=== PATIENT | female | born 1950 | race African-American/Black ===

== ENCOUNTER 2016-12-03 19:19 | Inpatient (IN) | payer OTHER ==
[2016-12-03 19:23] VITALS: BMI 24.9
--- NOTE | 2016-12-03 21:15 | PDOC ---
History of Present Illness - General History Source: Patient Exam Limitations: No Limitations - History of Present Illness Initial Comments: 12/03/16 22:09 The patient is a 66 year old female with a significant past medical history of HTN, multi myeloma (diagnoses in 2010), and osteoporosis who presents to the ED , sent by PMD (Dr. Zhang), for abnormal changes in ECG. The patient reports she had a sudden onset of loss of consciousness 3 weeks ago. She reports visiting her PMD on 11/[address] Zhang is concerned the loss of consciousness is related to her heart. Dr. Zhang compared the patient latest ECG (1 month ago) to an ECG of a year ago and noted some abnormal changes and called the patient at home to come into the ED. Denies chest pain or palpitations. Denies shortness of breath or cough. Denies fevers or chills. Denies any other symptoms. Surgical hx: Hysterectomy (several years ago), Shoulder rotator cuff, Femur surgery (jones in place) <Prakash Gunderson - Last Filed: 12/03/16 22:09> <Olga Barraza - Last Filed: 12/04/16 06:37> - General Chief Complaint: Revisit, Lab Variance Stated Complaint: LAB VARIANCE (PCP SENT) Time Seen by Provider: 12/03/16 21:15 Past History <Prakash Gunderson - Last Filed: 12/03/16 22:09> - Past Medical History Anemia: Yes Asthma: No Cancer: Yes (MUTIPLE MYELOMA 2011,RECEIVING CHEMO) Cardiac Disorders: Yes (BENIGN MURMUR) CVA: No COPD: No CHF: No Dementia: No Diabetes: No GI Disorders: No Disorders: No HTN: Yes Hypercholesterolemia: Yes Liver Disease: No Suicide Attempt (Hx): No Seizures: No Thyroid Disease: No - Surgical History Abdominal Surgery: No Appendectomy: No Cardiac Surgery: No Cholecystectomy: No Lung Surgery: No Neurologic Surgery: No Orthopedic Surgery: Yes (Jones placement on left femur) - Psycho/Social/Smoking Cessation Hx Suicidal Ideation: No Smoking History: Never smoked Have you smoked in the past 12 months: No Hx Alcohol Use: Yes (SOCIAL) Drug/Substance Use Hx: No Substance Use Type: None Hx Substance Use Treatment: No <Olga Barraza - Last Filed: 12/04/16 06:37> - Past Medical History Allergies/Adverse Reactions: Allergies Allergy/AdvReac Type Severity Reaction Status Date / Time No Known Drug Allergies Allergy Verified 12/03/16 19:23 Home Medications: Ambulatory Orders Amlodipine Besylate [Norvasc -] 5 mg PO DAILY 12/19/13 Atovaquone [Mepron Oral Solution -] 750 mg PO BID 8 Days 01/31/15 Azithromycin [Zithromax 250mg Tablets -] 500 mg PO DAILY 8 Days 01/31/15 Review of Systems - Review of Systems Able to Perform ROS?: Yes Comments:: 12/03/16 22:09 CONSTITUTIONAL: Absent: fever, chills, diaphoresis, generalized weakness, malaise, loss of appetite HEENT: Absent: rhinorrhea, nasal congestion, throat pain, throat swelling, difficulty swallowing, mouth swelling, ear pain, eye pain, visual Changes CARDIOVASCULAR: + abnormal ECG Absent: chest pain, syncope, palpitations, irregular heart rate, lightheadedness , peripheral edema RESPIRATORY: Absent: cough, shortness of breath, dyspnea with exertion, orthopnea, wheezing, stridor, hemoptysis GASTROINTESTINAL: Absent: abdominal pain, abdominal distension, nausea, vomiting, diarrhea, constipation, melena, hematochezia GENITOURINARY: Absent: dysuria, frequency, urgency, hesitancy, hematuria, flank pain, genital pain MUSCULOSKELETAL: Absent: myalgia, arthralgia, joint swelling SKIN: Absent: rash, itching, pallor HEMATOLOGIC/IMMUNOLOGIC: Absent: easy bleeding, easy bruising, lymphadenopathy, frequent infections ENDOCRINE: Absent: unexplained weight gain, unexplained weight loss, heat intolerance, cold intolerance NEUROLOGIC: + loss of consciousness Absent: headache, focal weakness or paresthesias, dizziness, unsteady gait, seizure, mental status changes, bladder or bowel incontinence PSYCHIATRIC: Absent: anxiety, depression, suicidal or homicidal ideation, hallucinations. All Other Systems: Reviewed and Negative <Prakash Gunderson - Last Filed: 12/03/16 22:09> *Physical Exam - Vital Signs Last Vital Signs Temp Pulse Resp BP Pulse Ox 97.9 F 85 18 126/62 99 12/03/16 19:21 12/03/16 19:21 12/03/16 19:21 12/03/16 19:21 12/03/16 19:21 - Physical Exam Comments: 07/07/17 22:09 GENERAL: Well developed, well nourished. Awake and alert. No acute distress. HEENT: Normocephalic, atraumatic. PERRLA, EOMI. No conjunctival pallor. Sclera are non- icteric. Moist mucous membranes. Oropharynx is clear. NECK: Supple. Full ROM. No JVD. Carotid pulses 2+ and symmetric, without bruits. No thyromegaly. NCo lymphadenopathy. CARDIOVASCULAR: + split S-1 murmur No rubs, or gallops. Distal pulses are 2+ and symmetric. PULMONARY: No evidence of respiratory distress. Lungs clear to auscultation bilaterally. No wheezing, rales or rhonchi. ABDOMINAL: Soft. Non-tender. Non-distended. No rebound or guarding. No organomegaly. Normoactive bowel sounds. MUSCULOSKELETAL Normal range of motion at all joints. No bony deformities or tenderness. No CVA tenderness. EXTREMITIES: No cyanosis. No clubbing. No edema. No calf tenderness. SKIN: Warm and dry. Normal capillary refill. No rashes. No jaundice. NEUROLOGICAL: Alert, awake, appropriate. Cranial nerves 2-12 intact. No deficits to light touch and temperature in face, upper extremities and lower extremities. No motor deficits in the in face, upper extremities and lower extremities. Normoreflexic in the upper and lower extremities. Normal speech. Toes are down- going bilaterally. Gait is normal without ataxia. PSYCHIATRIC: Cooperative. Good eye contact. Appropriate mood and affect. <Prakash Gunderson - Last Filed: 12/03/16 22:09> - Vital Signs Last Vital Signs Temp Pulse Resp BP Pulse Ox 97.9 F 85 18 126/62 99 12/03/16 19:21 12/03/16 19:21 12/03/16 19:21 12/03/16 19:21 12/03/16 19:21 <Olga Barraza - Last Filed: 12/04/16 06:37> ED Treatment Course - LABORATORY CBC & Chemistry Diagram: 12/03/16 23:45 12/03/16 23:45 <Olga Barraza - Last Filed: 12/04/16 06:37> Medical Decision Making - Medical Decision Making 12/04/16 06:03 Pt comes with syncope 1-2 weeks ago. She was feeling fine in a grocery store, when without warning she passed out and hit the ground. She never went to the hospital and tole this story to her oncologist for her multiple myeloma. Oncologist Vicente let her PMD know about this. Pt was scheduled to see a property developer, but the property developer couldn't see her until later in the month. Given patient's history of systolic murmur, and other medical problems, PMD asked her to come to the ER for an inpatient workup of syncope and an echocardiogram. Pt has a normal head CT and she has normal cardiac enzymes and a NSR EKG. SHe has a split S1 heart sound, indicative of bicuspid arotic valve vs perhaps Mitral valve prolapse. We requested Dr. Seymour of cardiology to consult on the patient. Pt admitted to her PMDs service. Dr. Richey is covering and aware of the patient. <Olga Barraza - Last Filed: 12/04/16 06:37> *DC/Admit/Observation/Transfer - Attestations Scribe Attestion: 12/03/16 22:10 Documentation prepared by Prakash Gunderson, acting as medical dir for Olga Barraza MD <Prakash Gunderson - Last Filed: 12/03/16 22:09> - Discharge Dispostion Admit: Yes <Olga Barraza - Last Filed: 12/04/16 06:37> Diagnosis at time of Disposition: Systolic murmur Syncope Qualifiers: Encounter type: initial encounter - Referrals
[2016-12-03 23:51] LABS: BASOPHIL 0.8 % (0-2.0); MCH 32.4 pg (25.7-33.7); MCHC 32.8 g/dl (32.0-36.0); MEAN CELL VOLUME 98.7 fl (80-96); MEAN PLT VOLUME 8.8 fl (7.5-11.1); NEUTROPHILS 70.6 % (42.8-82.8); PLATELET COUNT 229 K/MM3 (134-434); WHITE BLOOD COUNT 6.6 K/mm3 (4.0-10.0)
[2016-12-04 00:10] LABS: INR 1.04 (0.82-1.09); PROTHROMBIN TIME (PATIENT) 11.4 SEC (9.98-11.88)
[2016-12-04 00:20] LABS: ALBUMIN 3.7 g/dl (3.4-5.0); ALK PHOS 86 U/L (45-117); ANION GAP 9 (8-16); BILIRUBIN,TOTAL 0.6 mg/dL (0.2-1.0); CALCIUM 9.6 mg/dL (8.5-10.1); CO2 29 mmol/L (21-32); CREATININE 0.9 mg/dL (0.55-1.02); GLUCOSE,RANDOM 90 mg/dL (74-106); SGOT/AST 20 U/L (15-37); SGPT/ALT 32 U/L (12-78); TOT PROT 6.8 g/dl (6.4-8.2)
--- NOTE | 2016-12-04 01:17 | HP ---
Admitting History and Physical - Admission Chief Complaint: Syncope History of Present Illness: 66 y/o female with PMH as below, had an episode of syncope 1 week ago, but did not seek medical attention. Presented to her oncologist, where she was found to have changes in EKG and was advised admission for further evaluation. Currently the pt does not have any related symptoms. She has some generalized weakness and symptoms related to osteoarthritis. History Source: Patient, Medical Record, Caregiver Limitations to Obtaining History: No Limitations - Past Medical History Cardiovascular: Yes: HTN Heme/Onc: Yes: Other (multiple myeloma since 2009) Musculoskeletal: Yes: Osteoarthritis - Past Surgical History Past Surgical History: Yes: Hysterectomy (AP-BSO for benign ovarian cyst), Joint Replacement (L femur indra 2009 for pathological fracture) - Smoking History Smoking history: Never smoked Have you smoked in the past 12 months: No - Alcohol/Substance Use Hx Alcohol Use: Yes (SOCIAL) - Social History ADL: Independent History of Recent Travel: No Home Medications - Allergies Allergies/Adverse Reactions: Allergies Allergy/AdvReac Type Severity Reaction Status Date / Time No Known Drug Allergies Allergy Verified 12/03/16 19:23 - Home Medications Home Medications: Ambulatory Orders Amlodipine Besylate [Norvasc -] 5 mg PO DAILY 12/19/13 Atovaquone [Mepron Oral Solution -] 750 mg PO BID 8 Days 01/31/15 Azithromycin [Zithromax 250mg Tablets -] 500 mg PO DAILY 8 Days 01/31/15 Family Disease History - Family Disease History Family History: Unremarkable Family Disease History: Other: Father ( in war), Mother (glaucoma HTN OA, alive at 97) Review of Systems - Review of Systems Constitutional: reports: Weakness HENT: reports: No Symptoms Cardiovascular: reports: Other (Syncope) Gastrointestinal: reports: No Symptoms Musculoskeletal: reports: Joint Pain Neurological: reports: Syncope Hematology/Lymphatic: reports: No Symptoms Physical Examination Vital Signs: Vital Signs Temperature 97.9 F 12/03/16 19:21 Pulse Rate 85 12/03/16 19:21 Respiratory Rate 18 12/03/16 19:21 Blood Pressure 126/62 12/03/16 19:21 O2 Sat by Pulse Oximetry (%) 99 12/03/16 19:21 Constitutional: Yes: No Distress Eyes: Yes: PERRL HENT: Yes: Atraumatic, Normocephalic Neck: Yes: Supple Cardiovascular: Yes: Regular Rate and Rhythm, Murmur, S1, S2 Respiratory: Yes: CTA Bilaterally Gastrointestinal: Yes: Normal Bowel Sounds, Soft Neurological: Yes: Alert, Oriented. No: Loss of Sensation ...Motor Strength: WNL Imaging - Results Cat Scan: Report Reviewed Problem List - Problems (1) Syncope Assessment/Plan: Telemetry monitoring, troponins, Echocardiogram and cardiology consultation. CT head unremarkable Code(s): R55 - SYNCOPE AND COLLAPSE Qualifiers: Encounter type: initial encounter (2) Systolic murmur Assessment/Plan: Echo as above Code(s): R01.1 - CARDIAC MURMUR, UNSPECIFIED (3) Myeloma Assessment/Plan: Stable, oncology follow up Code(s): C90.00 - MULTIPLE MYELOMA NOT HAVING ACHIEVED REMISSION Qualifiers: Multiple myeloma remission status: unspecified Qualified Code(s): C90.00 - Multiple myeloma not having achieved remission (4) HTN (hypertension) Assessment/Plan: Amlodipine Code(s): I10 - ESSENTIAL (PRIMARY) HYPERTENSION Qualifiers: Hypertension type: essential hypertension Qualified Code(s): I10 - Essential (primary) hypertension
[2016-12-04 02:16] LABS: TROPONIN I < 0.02 ng/ml (0.00-0.05)
[2016-12-04 07:52] LABS: MCH 33.2 pg (25.7-33.7); MCHC 33.7 g/dl (32.0-36.0); MEAN CELL VOLUME 98.4 fl (80-96); MEAN PLT VOLUME 9.5 fl (7.5-11.1); PLATELET COUNT 206 K/MM3 (134-434); RDW 15.9 % (11.6-15.6); WHITE BLOOD COUNT 9.7 K/mm3 (4.0-10.0)
[2016-12-04 08:19] LABS: ALBUMIN 3.5 g/dl (3.4-5.0); ANION GAP 9 (8-16); CALCIUM 9.3 mg/dL (8.5-10.1); CO2 24 mmol/L (21-32); GLUCOSE,RANDOM 105 mg/dL (74-106)
[2016-12-04 08:25] LABS: ALK PHOS 81 U/L (45-117); BILIRUBIN,TOTAL 0.7 mg/dL (0.2-1.0); CREATININE 0.8 mg/dL (0.55-1.02); SGOT/AST 20 U/L (15-37); SGPT/ALT 28 U/L (12-78); TOT PROT 6.3 g/dl (6.4-8.2); TROPONIN I < 0.02 ng/ml (0.00-0.05)
[2016-12-04] MEDS ORDERED: PT OWN MED DRAWER 7, Y5N ONE (08:46)
[2016-12-04] MEDS: ASPIRIN COATED 81 MG TABLET.EC PO SCH (09:06)
[2016-12-04] MEDS: ENOXAPARIN NA (PORCINE) 40 MG/0.4 ML DISP.SYRIN SQ SCH (09:06)
[2016-12-04] MEDS: amLODIPine BESYLATE 5 MG TABLET (FP) PO SCH (09:06)
--- NOTE | 2016-12-04 14:32 | CON.CARD ---
Cardiology Consult (text) - Consultation Consultation Note: CC: prior syncope/ekg abnormalities 66 yo with h/o HTN, murmur, multiple myeloma, osteoporosis and episode of syncope 3 weeks ago who presents new EKG abnormalities. The patient reports she had a sudden onset of loss of consciousness 3 weeks ago while standing in line at grocery store. No prodrome. + LOC. Immediately regained consciousness and was asx. denies prior h/o syncope, palps or presyncope. Denies chest pain or palpitations. Denies shortness of breath, orthopnea, pnd, le edema, bleeding, claudication or transient neurologic sx's. Denies n/v/d, congestion, h/a, rashes, cough. Denies f/c/s. PMHx/Surgical hx: per hpi, Hysterectomy (several years ago), Shoulder rotator cuff, Femur surgery (indra in place) Social hx: Never smoked, social etoh fam hx: mother with chf in her 90's. ros: per hpi Ambulatory Orders Amlodipine Besylate [Norvasc -] 5 mg PO DAILY 12/19/13 Atovaquone [Mepron Oral Solution -] 750 mg PO BID 8 Days 01/31/15 Azithromycin [Zithromax 250mg Tablets -] 500 mg PO DAILY 8 Days 01/31/15 Current Medications Amlodipine Besylate (Norvasc -) 5 mg PO DAILY [facility] Last Admin: 12/04/16 09:06 Dose: 5 mg Aspirin (Ecotrin -) 81 mg PO DAILY [facility] Last Admin: 12/04/16 09:06 Dose: 81 mg Enoxaparin Sodium (Lovenox -) 40 mg SQ DAILY [facility] Last Admin: 12/04/16 09:06 Dose: 40 mg Vital Signs - 24 hr 12/03/16 12/04/16 12/04/16 19:21 05:38 06:00 Temperature 97.9 F 98.1 F 97.6 F Pulse Rate 85 72 70 Respiratory 18 18 18 Rate Blood Pressure 126/62 156/86 146/76 O2 Sat by Pulse 99 98 Oximetry (%) 12/04/16 12/04/16 12/04/16 07:54 08:00 13:57 Temperature 98.1 F 98 F Pulse Rate 69 68 Respiratory 20 18 20 Rate Blood Pressure 141/80 138/64 O2 Sat by Pulse 98 Oximetry (%) Intake & Output 12/02/16 12/03/16 12/04/16 12/05/16 07:59 07:59 07:59 07:59 Intake Total 210 Balance 210 Weight 145 lb nad, calm jvd flat, neck supple ctab, nl effort rrr nl s1 s2, 2/6 murmur at rusb + bs soft nt nd ext without e/c/c no carotid bruits no jaundice, diaphoresis aaox3 + dp/pt CBC, BMP 12/04/16 06:00 12/04/16 06:00 Laboratory Tests 12/03/16 12/03/16 12/04/16 23:45 23:45 06:00 INR 1.04 Total Bilirubin 0.7 AST 20 ALT 28 Alkaline Phosphatase 81 Creatine Kinase 199 H D Creatine Kinase Index 1.0 CK-MB (CK-2) 2.070 Troponin I < 0.02 < 0.02 Albumin 3.5 EKG nsr/sinus arrhythmia. possible lvh Repeat EKG: nsr with pvc triggering brief self-limited SVT and then return to sinus rhythm on rhythm strip. tele: 5b nsvt CXR/head CT: no acute pathology Echo 2015: nl lv/rv mod fang. 1+ mr/tr. rsp 40-50. 66 yo with h/o HTN, murmur, multiple myeloma, osteoporosis and episode of syncope 3 weeks ago who presents new EKG abnormalities. syncope/ brief SVT, nsvt noted on monitoring - no prodrome - patient strongly wants to go home. Will con't telemetry monitoring for another 24 hours and if no significant arrhythmias will plan to discharge home with holter monitor. Can follow up with me in office on tuesday and will schedule stress testing and echo.. EKG abnormalities - EKG ab noted at oncology office, but I do not have access to that EKG. Current EKG similar to priors. no ischemic changes. CE's neg x 2. htn - controlled on norvasc, con't murmur - no significant valvular disease noted on exam. will further evaluate with echo as mentioned above.
[2016-12-05 06:39] LABS: MCH 33.3 pg (25.7-33.7); MCHC 33.8 g/dl (32.0-36.0); MEAN CELL VOLUME 98.4 fl (80-96); MEAN PLT VOLUME 8.5 fl (7.5-11.1); PLATELET COUNT 195 K/MM3 (134-434); RDW 16.2 % (11.6-15.6); WHITE BLOOD COUNT 7.1 K/mm3 (4.0-10.0)
[2016-12-05 07:24] LABS: ALBUMIN 3.1 g/dl (3.4-5.0); ANION GAP 9 (8-16); CALCIUM 8.7 mg/dL (8.5-10.1); CO2 27 mmol/L (21-32); GLUCOSE,RANDOM 96 mg/dL (74-106); MAGNESIUM 2.2 mg/dL (1.8-2.4)
[2016-12-05 07:30] LABS: ALK PHOS 75 U/L (45-117); BILIRUBIN,TOTAL 0.5 mg/dL (0.2-1.0); CREATININE 0.8 mg/dL (0.55-1.02); SGOT/AST 17 U/L (15-37); SGPT/ALT 25 U/L (12-78); TOT PROT 5.8 g/dl (6.4-8.2); TROPONIN I < 0.02 ng/ml (0.00-0.05)
[2016-12-05 07:54] VITALS: BP 138/83; PULSE 61; TEMP 98
[2016-12-05] MEDS: ASPIRIN COATED 81 MG TABLET.EC PO SCH (09:10)
[2016-12-05] MEDS: amLODIPine BESYLATE 5 MG TABLET (FP) PO SCH (09:10)
[2016-12-05] MEDS: ENOXAPARIN NA (PORCINE) 40 MG/0.4 ML DISP.SYRIN SQ SCH (09:11)
--- NOTE | 2016-12-05 23:17 | DS ---
Physical Examination Vital Signs: Vital Signs Temperature 98 F 12/05/16 07:53 Pulse Rate 61 12/05/16 07:53 Respiratory Rate 18 12/05/16 08:00 Blood Pressure 138/83 12/05/16 07:53 O2 Sat by Pulse Oximetry (%) 97 12/05/16 08:00 Constitutional: Yes: No Distress Eyes: Yes: WNL, Conjunctiva Clear, EOM Intact HENT: Yes: WNL, Atraumatic, Normocephalic Neck: Yes: Supple Cardiovascular: Yes: Regular Rate and Rhythm, S1, S2 Respiratory: Yes: CTA Bilaterally Gastrointestinal: Yes: Normal Bowel Sounds, Soft Musculoskeletal: Yes: WNL Extremities: Yes: WNL Edema: No Integumentary: Yes: WNL Neurological: Yes: Alert, Oriented ...Motor Strength: WNL Psychiatric: Yes: WNL Labs: CBC, BMP 12/05/16 05:40 12/05/16 05:40 Discharge Summary Reason For Visit: SYNCOPE, SYSTOLIC MURMUR/SYNCOPE/MULTIPLE MYELOMA Procedures: Principal: HOLTER MONITOR Hospital Course: 66 y/o female admitted after a syncope, had a brief period of new a fib, Cardiolgy rec Holter monitor which was applied, Echo as outpatient Condition: Good - Instructions Diet, Activity, Other Instructions: You have been placed with a holter monitor today 12/05/16. Please return monitor to [facility], cardiology department level-S1 in 24hrs Follow up with Dr. Alona Garces (cardiology) on Tuesday12/06/16 at 1230pm for stress and echocardiogram Please return to ER if any symptoms reoccur Diet:: 2 gm Na Referrals: Mili Membreno MD [Staff Physician] - Kendy Camp MD [Primary Care Provider] - Disposition: HOME - Home Medications Comprehensive Discharge Medication List: Ambulatory Orders Amlodipine Besylate [Norvasc -] 5 mg PO DAILY 12/19/13 Atovaquone [Mepron Oral Solution -] 750 mg PO BID 8 Days 01/31/15 Azithromycin [Zithromax 250mg Tablets -] 500 mg PO DAILY 8 Days 01/31/15
--- NOTE | 2016-12-06 13:53 | EKG ---
Test Reason : Blood Pressure : / mmHG Vent. Rate : 113 BPM Atrial Rate : 055 BPM P-R Int : 000 ms QRS Dur : 114 ms QT Int : 416 ms P-R-T Axes : 000 033 074 degrees QTc Int : 570 ms ATRIAL FIBRILLATION WITH RAPID VENTRICULAR RESPONSE WITH PREMATURE VENTRICULAR OR ABERRANTLY CONDUCTED COMPLEXES NONSPECIFIC T WAVE ABNORMALITY PROLONGED QT ABNORMAL ECG WHEN COMPARED WITH ECG OF 04-DEC-2016 01:26, ATRIAL FIBRILLATION HAS REPLACED SINUS RHYTHM Confirmed by AKHIL LYONS, ALAN ([id number]) on 12/06/2016 1:53:34 PM Referred By: Cleve MEAD Confirmed By:ALAN LANDAVERDE MD
--- NOTE | 2016-12-06 13:54 | EKG ---
Test Reason : Blood Pressure : / mmHG Vent. Rate : 091 BPM Atrial Rate : 091 BPM P-R Int : 134 ms QRS Dur : 082 ms QT Int : 350 ms P-R-T Axes : 067 031 058 degrees QTc Int : 430 ms NORMAL SINUS RHYTHM WITH SINUS ARRHYTHMIA MINIMAL VOLTAGE CRITERIA FOR LVH, MAY BE NORMAL VARIANT BORDERLINE ECG WHEN COMPARED WITH ECG OF 27-JAN-2015 14:36, T WAVE VARIATION Confirmed by AKHIL LYONS, ALAN ([id number]) on 12/06/2016 1:54:24 PM Referred By: Confirmed By:ALAN LANDAVERDE MD
--- NOTE | 2016-12-09 07:08 | HOL ---
Hook-up date: 2016-12-05 09:36:00 Duration: 23:59:00 Test Indications: SYNCOPE Medications: 20073 QRS complexes 18 Ventricular ectopics which represent <1 % of total QRS comp. 5214 Supraventricular ectopics which represent 5 % of total QRS comp. * Paced QRS complexs which represent % of total QRS comp. 2 % of Time Classified as Noise VENTRICULAR ECTOPY 16 Isolated 0 Bigeminal Cycles 1 Couplets 0 Runs 0 Beats in Runs * Beats LONGEST at * BPM at :: -- * Beats FASTEST at * BPM at :: -- SUPRAVENTRICULAR ECTOPY 4949 Isolated 120 Couplets 6 Runs 23 Beats in Runs 8 Beats LONGEST at 139 BPM at 07:10:51 2016-12-06 8 Beats FASTEST at 139 BPM at 07:10:51 2016-12-06 HEART RATES 46 MIN at 01:03:29 2016-12-06 66 AVG 116 MAX at 16:03:49 2016-12-05 LONGEST RR 1.376 secs at 18:08:33 2016-12-05 SCANNED BY RAIZA GAMA 12/07/2016 1. Basic rhythm was sinus with a mnimum heart rate of 46 BPM and maximum of 116 BPM. Average heart rate of 66 BPM 2. There were rare VPB's 3. There were frequent SPB's at times successive, 3 in a row and a 7 beat run of SVT (07:10) 4. ST segments revealed nonspecific changes that were rate related and unrelated. 5. No diary was submitted. Confirmed by SHEIKH SERENA, BRANDO ([id number]), editorial clerk HANK MAR ([id number]) on 12/09/2016 7:07:32 AM Referred By: Overread By: BRANDO BROOKS MD
== END 2016-12-05 12:18 | disposition home or self-care (01) | DRG 307 ==
LOC: JER 19:19 → JERBED 23:51 → J4W 12-04 03:22
PROVIDERS: ADMIT Internal Medicine; ATTEND Internal Medicine
DX: R01.1 Cardiac murmur, unspecified (principal); C90.00 Multiple myeloma not having achieved remission; I47.1 Supraventricular tachycardia; R55 Syncope and collapse; I10 Essential (primary) hypertension; I48.91 Unspecified atrial fibrillation
CPT/HCPCS: 36415; 70450-TC; 71020-TC; 80053; 82550; 82553; 83735; 84484; 85025; 85027; 85610; 85730; 93005; 93010; 93225; 93226; 99284-25

== ENCOUNTER 2017-05-11 15:38 | Emergency (ER) | payer OTHER ==
[2017-05-11 15:43] VITALS: TEMP 98; BMI 24.9
--- NOTE | 2017-05-11 16:02 | PDOC ---
History of Present Illness - General History Source: Patient Exam Limitations: No Limitations - History of Present Illness Initial Comments: 05/11/17 17:03 66 year old female, with significant past medical history of HTN and osteoporosis, who was sent over to the emergency room from outpatient CT with swelling to an infiltrated IV on the right arm. The patient explains that she was having an outpatient Chest CT with contrast to r/o pulmonary embolism at 3: 30 today. The IV line in the right cubital vein infiltrated with contrast and the right biceps and forearm became swollen. The arm was elevated ice was applied. She was sent into the ED for further evaluation. The patient denies any allergies to contrast. Denies difficulty breathing, difficulty swallowing. Denies numbness,tingling down the extremity, fingers, and hands. Denies chest pain, SOB. Denies fever, chills, nausea, vomiting. Allergies: NKDA PCP: Dr. Camp <Lottie Good - Last Filed: 05/11/17 17:03> <Odessa Zacarias - Last Filed: 05/11/17 17:41> - General Chief Complaint: Pain, Acute Stated Complaint: EVALUATION Time Seen by Provider: 05/11/17 16:01 Past History <Lottie Good - Last Filed: 05/11/17 17:03> - Past Medical History Anemia: Yes Asthma: No Cancer: Yes (MUTIPLE MYELOMA) Cardiac Disorders: Yes (BENIGN MURMUR) CVA: No COPD: No CHF: No DVT: No Dementia: No Diabetes: No GI Disorders: No Disorders: No HTN: Yes Hypercholesterolemia: Yes Liver Disease: No Seizures: No Thyroid Disease: No - Surgical History Abdominal Surgery: No Appendectomy: No Cardiac Surgery: No Cholecystectomy: No Lung Surgery: No Neurologic Surgery: No Orthopedic Surgery: Yes (Jones placement on left femur) - Suicide/Smoking/Psychosocial Hx Smoking History: Never smoked Have you smoked in the past 12 months: No Hx Alcohol Use: No Drug/Substance Use Hx: No Substance Use Type: None Hx Substance Use Treatment: No <Odessa Zacarias - Last Filed: 05/11/17 17:41> - Past Medical History Allergies/Adverse Reactions: Allergies Allergy/AdvReac Type Severity Reaction Status Date / Time No Known Drug Allergies Allergy Verified 05/11/17 15:42 Home Medications: Ambulatory Orders Apixaban [Eliquis -] 5 mg PO BID 05/11/17 Atorvastatin Ca [Lipitor] 40 mg PO HS 05/11/17 Cholecalciferol (Vitamin D3) [Vitamin D3 -] 1,000 unit PO DAILY 05/11/17 Lisinopril [Prinivil] 5 mg PO DAILY 05/11/17 Metoprolol Succinate [Toprol Xl -] 25 mg PO DAILY 05/11/17 Pantoprazole Sodium [Protonix -] 40 mg PO DAILY 05/11/17 Valacyclovir HCl [Valtrex -] 500 mg PO DAILY 05/11/17 Review of Systems - Review of Systems Able to Perform ROS?: Yes Comments:: 05/11/17 17:10 GENERAL/CONSTITUTIONAL: No fever or chills. No weakness. HEAD, EYES, EARS, NOSE AND THROAT: No change in vision. No ear pain or discharge. No sore throat. GASTROINTESTINAL: No nausea, vomiting, diarrhea or constipation. GENITOURINARY: No dysuria, frequency, or change in urination. CARDIOVASCULAR: No chest pain or shortness of breath. RESPIRATORY: No cough, wheezing, or hemoptysis. MUSCULOSKELETAL: +swelling to the right bicep and forearm from an infiltrated line. No neck or back pain. SKIN: No rash NEUROLOGIC: No headache, vertigo, loss of consciousness, or change in strength/ sensation. ENDOCRINE: No increased thirst. No abnormal weight change. HEMATOLOGIC/LYMPHATIC: No anemia, easy bleeding, or history of blood clots. ALLERGIC/IMMUNOLOGIC: No hives or skin allergy. <Lottie Good - Last Filed: 05/11/17 17:03> *Physical Exam - Vital Signs Last Vital Signs Temp Pulse Resp BP Pulse Ox 98.0 F 78 16 151/59 99 05/11/17 15:39 05/11/17 16:27 05/11/17 16:27 05/11/17 16:27 05/11/17 16:27 - Physical Exam Comments: 05/11/17 17:10 Constitutional: Awake, alert, oriented. No acute distress. Head: Normocephalic. Atraumatic Eyes: PERRL. EOMI. Conjunctivae are not pale. ENT: Mucous membranes are moist and intact. Posterior pharynx without exudates or erythema. Uvula midline. Neck: Supple. Full ROM. No lymphadenopathy. Cardiovascular: Regular rate. Regular rhythm. S1, S2 regular. Distal pulses are 2+ and symmetric. Pulmonary/Chest: No evidence of respiratory distress. Clear to auscultation bilaterally No wheezing, rales or rhonchi. Abdominal: Soft and non-distended. There is no tenderness. No rebound, guarding or rigidity. No organomegaly. No palpable masses. Good bowel sounds. Right arm: +There is soft tissue swelling from local infiltrate to the right antecubital fossa approximately 1/[address] up to the biceps and approximately 1/[address] down the forearm. No signs of compartment syndrome. The radial ulnar pulses are intact. Brisk capillary refill.No clubbing. Skin: Skin is warm and dry. No petechiae. No purpura. Neurological: Alert and oriented to person, place, and time. Cranial nerves II -XII are grossly intact. Normal speech. Strength is grossly symmetric. No sensory deficits. Psychiatric: Good eye contact. Normal interaction, affect and behavior. <Lottie Good - Last Filed: 05/11/17 17:03> - Vital Signs Last Vital Signs Temp Pulse Resp BP Pulse Ox 98.0 F 57 L 20 190/94 100 05/11/17 15:39 05/11/17 15:39 05/11/17 15:39 05/11/17 15:39 05/11/17 15:39 <Odessa Zacarias - Last Filed: 05/11/17 17:41> Medical Decision Making - Medical Decision Making 05/11/17 16:17 a/p: 67yo female sent from radiology for eval of R arm infiltration of IV contrast -local infiltration with soft tissue swelling, compartments soft -pulses intact -sensation intact -brisk cap refill -will apply warm heating packs and reassess 05/11/17 17:13 re-eval: compartments soft, radial pulse intact, sensation intact, infiltrated region soft still with soft tissue swelling call placed to Dr. Barksdale to discuss case and plan for repeat ct tomorrow 05/11/17 17:36 re-eval: feeling better will take over to CT to reschedule ct for tomorrow discussed with dr. barksdale who agrees with the plan, ok to send home tonight and reschedule ct for any day this week discussed plan with the patient who agrees no tachycardia no sob no respiratory distress pain in R shoulder no pleuritic complaint at this time pt is stable to d/c to home. discussed all signs/symptoms of compartment syndrome and reasons to return to the ED discussed need for ct tomorrow. answered all questions. <Odessa Zacarias - Last Filed: 05/11/17 17:41> *DC/Admit/Observation/Transfer - Attestations Scribe Attestion: 05/11/17 17:13 Documentation prepared by EMIL Gonzalez, acting as medical director for Odessa Zacarias DO. <Lottie Good - Last Filed: 05/11/17 17:03> - Discharge Dispostion Admit: No - Attestations Physician Attestion: 05/11/17 17:41 I, Dr. Odessa Zacarias DO, attest that this document has been prepared under my direction and personally reviewed by me in its entirety. I further attest, that it accurately reflects all work, treatment, procedures and medical decision -making performed by me. <Odessa Zacarias - Last Filed: 05/11/17 17:41> Diagnosis at time of Disposition: Intravenous infiltration - Discharge Dispostion Disposition: HOME Condition at time of disposition: Stable - Referrals Referrals: Kendy Camp MD [Primary Care Provider] - - Patient Instructions Printed Discharge Instructions: DI for Adverse Drug Reaction -- Other Additional Instructions: Please apply local compresses to the area. Please return to the ED with any further concerns. Please go to your CT appointment tomorrow as scheduled. Please follow up with your PMD.
[2017-05-11 16:28] VITALS: BP 151/59; PULSE 78
== END 2017-05-11 17:56 | disposition home or self-care (01) ==
LOC: JER 15:38
DX: T80.89XA Other complications following infusion, transfusion and therapeutic injection, initial encounter (principal); Y84.8 Other medical procedures as the cause of abnormal reaction of the patient, or of later complication, without mention of misadventure at the time of the procedure; Y78.8 Miscellaneous radiological devices associated with adverse incidents, not elsewhere classified; I10 Essential (primary) hypertension; M81.0 Age-related osteoporosis without current pathological fracture; Z85.89 Personal history of malignant neoplasm of other organs and systems
CPT/HCPCS: 99282-25

== ENCOUNTER 2020-01-26 05:04 | Inpatient (IN) | payer BC, OTHER ==
--- NOTE | 2020-01-26 05:26 | PDOC ---
History of Present Illness - General Stated Complaint: DIZZY/SYNCOPE Time Seen by Provider: 01/26/20 05:24 History Source: Patient Exam Limitations: No Limitations - History of Present Illness Initial Comments: 69yF with PMH of multiple myeloma (currently on chemo), HTN, on eliquis, syncope, and self-remitting SVTs presents to the ED with syncope. Syncope was non-prodromal. Pt unsure if she hit her head. Her daughter heard her fall and called EMS. Pt is currently on chemo and experience nausea, vomiting, and diarrhea yesterday. The pt's daughter and EMS both noted black tarry/bright red stool on the floor of the bathroom but the pt denies hematochezia. Reports polydipsia, generalized weakness, and lightheadedness. Denies fever, CP, SOB, MAXWELL, vision changes, numbness/tingling, abdominal pain, dy suria. PMH: as in HPI SH: see below Meds: Allergies: NKDA Tob/Etoh/Rec drugs: negx3 PCP: ROS GENERAL/CONSTITUTIONAL: No fever or chills. +generalized weakness. HEENT: No change in vision. No ear pain or discharge. No sore throat. CARDIOVASCULAR: No chest pain or shortness of breath RESPIRATORY: No cough, wheezing, or hemoptysis. GASTROINTESTINAL: +nausea, vomiting, diarrhea; no constipation. GENITOURINARY: No dysuria, frequency, or change in urination. MUSCULOSKELETAL: No joint or muscle swelling or pain. No neck or back pain. SKIN: No rash NEUROLOGIC: No headache, vertigo, loss of consciousness, or change in strength/sensation. ENDOCRINE: +increased thirst. No abnormal weight change HEMATOLOGIC/LYMPHATIC: No anemia, easy bleeding, or history of blood clots. ALLERGIC/IMMUNOLOGIC: No hives or skin allergy. PE GENERAL: Awake, alert, and fully oriented, in no acute distress HEAD: No signs of trauma, normocephalic, atraumatic EYES: PERRLA, EOMI, sclera anicteric, conjunctiva clear ENT: Auricles normal inspection, hearing grossly normal, nares patent, oropharynx clear without exudates. Moist mucosa NECK: Normal ROM, supple, no LAD, JVD, or masses HEART: Regular rate, diastolic murmur, normal S1 and S2, no murmurs, rubs or gallops, peripheral pulses normal and equal bilaterally. LUNGS: No distress, speaks full sentences, clear to auscultation bilaterally ABDOMEN: Soft, nontender, normoactive bowel sounds. No guarding, no rebound. No masses EXTREMITIES: Normal inspection, Normal range of motion, no edema. No obvious trauma or deformity. NEUROLOGICAL: CNII-XII grossly intact. Normal speech, no focal sensorimotor deficits SKIN: Warm, Dry, normal turgor, no rashes or lesions noted Assessment and Plan -R/o ACS, arrhythmia, electrolyte abnormality, infection, GI bleed -R/o intracranial hemorrhage -placed on monitor Ramana Wilkerson, PGY1 Emergency Medicine Past History - Medical History Allergies/Adverse Reactions: Allergies Allergy/AdvReac Type Severity Reaction Status Date / Time No Known Drug Allergies Allergy Verified 05/11/17 15:42 Home Medications: Ambulatory Orders Apixaban [Eliquis -] 5 mg PO BID 05/11/17 Atorvastatin Ca [Lipitor] 40 mg PO HS 05/11/17 Cholecalciferol (Vitamin D3) [Vitamin D3 -] 1,000 unit PO DAILY 05/11/17 Lisinopril [Prinivil] 5 mg PO DAILY 05/11/17 Metoprolol Succinate [Toprol Xl -] 25 mg PO DAILY 05/11/17 Pantoprazole Sodium [Protonix -] 40 mg PO DAILY 05/11/17 Valacyclovir HCl [Valtrex -] 500 mg PO DAILY 05/11/17 Anemia: Yes Asthma: No Cancer: Yes (MUTIPLE MYELOMA) Cardiac Disorders: Yes (BENIGN MURMUR) CVA: No COPD: No CHF: No DVT: No Dementia: No Diabetes: No GI Disorders: No Disorders: No HTN: Yes Hypercholesterolemia: Yes Liver Disease: No Seizures: No Thyroid Disease: No - Surgical History Abdominal Surgery: No Appendectomy: No Cardiac Surgery: No Cholecystectomy: No Lung Surgery: No Neurologic Surgery: No Orthopedic Surgery: Yes (Jones placement on left femur) - Psycho-Social/Smoking History Smoking History: Never smoked Have you smoked in the past 12 months: No ED Treatment Course - LABORATORY CBC & Chemistry Diagram: 01/26/20 05:50 01/26/20 05:50 Medical Decision Making - Medical Decision Making 69yF with PMH of multiple myeloma (currently on chemo), HTN, on eliquis, syncope, and self-remitting SVTs presents to the ED with non-prodromal syncope. -Physical exam unremarkable, no obvious signs of trauma, neuro exam intact -Signed out to day team -pending labs and head CT -anticipating admission Discharge - Discharge Information Problems reviewed: Yes Clinical Impression/Diagnosis: Syncope Qualifiers: Syncope type: unspecified Qualified Code(s): R55 - Syncope and collapse - Admission Yes - Follow up/Referral Referrals: Kendy Camp MD [Primary Care Provider] - - Patient Discharge Instructions - Post Discharge Activity
--- NOTE | 2020-01-26 05:27 | PDOC ---
Attending Attestation - Resident Resident Name: Ramana Wilkerson - HPI HPI: 01/26/20 06:44 Pt presents to the ED complaining of syncope and lightheadness. States that there was blood on the floor when she woke up from her syncope. Immediately after syncope, then had diarrhea, that she described as "dark". Denies fever, nausea and vomiting. Denies diarrhea prior to syncope. Denies nausea and vomiting. Denies fever. 01/26/20 07:04 - Physicial Exam PE: 01/26/20 06:59 Agree with resident exam. Patient is alert and in NAD. CV: rrr +systolic murmur. Pulm: CTA B/L. Abdomen: soft, non tender, non distended without guarding or rebound. - Medical Decision Making 01/26/20 07:04 Pt presents to the ED complaining of syncope, lightheadness and "dark" diarrhea. + murmur on exam. Concern for valvular disease, arrythmia, LIGB. Slightly hypotensive on ED arrival. Will check labs and CXR, stool for occult blood and admit to medicine. Will transfuse if anemic. Will start IVF. 01/26/20 07:05 Discharge - Discharge Information Problems reviewed: Yes Clinical Impression/Diagnosis: Lower gastrointestinal bleed Syncope Qualifiers: Syncope type: unspecified Qualified Code(s): R55 - Syncope and collapse Anemia Qualifiers: Anemia type: unspecified type Qualified Code(s): D64.9 - Anemia, unspecified Disposition: HOME - Follow up/Referral - Patient Discharge Instructions - Post Discharge Activity
[2020-01-26] MEDS ORDERED: LACTATED RINGERS SOLUTION 1000 ML INFUS.BAG IV ONE (05:56)
[2020-01-26 06:35] LABS: BASO % 0.3 % (0-2.0); EOS % 0.2 % (0-4.5); HEMATOCRIT 20.8 % (32.4-45.2); LYMPH % 26.9 % (8-40); MCH 32.8 pg (25.7-33.7); MCHC 33.2 g/dl (32.0-36.0); MEAN CELL VOLUME 98.8 fl (80-96); MEAN PLT VOLUME 9.3 fl (7.5-11.1); MONO % 6.4 % (3.8-10.2); NEUT % 66.2 % (42.8-82.8); PLATELET COUNT 154 K/MM3 (134-434); RBC 2.11 M/mm3 (3.60-5.2); RDW 16.3 % (11.6-15.6); WHITE BLOOD COUNT 9.1 K/mm3 (4.0-10.0)
[2020-01-26 07:06] LABS: ALBUMIN 2.4 g/dl (3.4-5.0); ALK PHOS 33 U/L (45-117); ANION GAP 7 MMOL/L (8-16); BILIRUBIN,TOTAL 0.3 mg/dL (0.2-1); BLOOD UREA NITROGEN 60.1 mg/dL (7-18); CALCIUM 7.6 mg/dL (8.5-10.1); CHLORIDE 114 mmol/L (98-107); CO2 24 mmol/L (21-32); CREATININE 1.1 mg/dL (0.55-1.3); GLUCOSE,RANDOM 128 mg/dL (74-106); POTASSIUM 3.8 mmol/L (3.5-5.1); SGOT/AST 21 U/L (15-37); SGPT/ALT 27 U/L (13-61); SODIUM 145 mmol/L (136-145); TOT PROT 4.4 g/dl (6.4-8.2)
[2020-01-26 07:07] LABS: INR 1.02 (0.83-1.09)
[2020-01-26 07:10] LABS: ACTIVATED PTT 19.5 SECONDS (25.2-36.5)
[2020-01-26 07:12] LABS: HEMOGLOBIN 6.9 GM/dL (10.7-15.3)
--- NOTE | 2020-01-26 07:27 | PDOC ---
*Physical Exam - Vital Signs Last Vital Signs Temp Pulse Resp BP Pulse Ox 98 F 74 18 114/58 L 100 01/26/20 07:02 01/26/20 07:02 01/26/20 07:02 01/26/20 07:02 01/26/20 07:02 ED Treatment Course - LABORATORY CBC & Chemistry Diagram: 01/26/20 05:50 01/26/20 05:50 - ADDITIONAL ORDERS Additional order review: Laboratory Results 01/26/20 01/26/20 05:50 05:50 PT with INR 12.00 INR 1.02 PTT (Actin FS) 19.5 L Sodium 145 Potassium 3.8 Chloride 114 H Carbon Dioxide 24 Anion Gap 7 L BUN 60.1 H Creatinine 1.1 Est GFR (CKD-EPI)AfAm 59.32 Est GFR (CKD-EPI)NonAf 51.18 Random Glucose 128 H Calcium 7.6 L Total Bilirubin 0.3 AST 21 ALT 27 Alkaline Phosphatase 33 L Creatine Kinase 126 Troponin I < 0.02 Total Protein 4.4 L Albumin 2.4 L TSH 1.45 01/26/20 05:50 RBC 2.11 L MCV 98.8 H MCHC 33.2 RDW 16.3 H MPV 9.3 Neutrophils % 66.2 Lymphocytes % 26.9 Monocytes % 6.4 D Eosinophils % 0.2 D Basophils % 0.3 - Medications Given in the ED: ED Medications Discontinued Medications Generic Name Dose Route Start Last Admin Trade Name Freq PRN Reason Stop Dose Admin Lactated Ringer's 1,000 ml 01/26/20 05:56 01/26/20 06:07 Lactated Ringers Solution IV 01/26/20 05:57 1,000 ml ONCE ONE Administration Medical Decision Making - Medical Decision Making Pt was signed out to me by resident Dr. Wilkerson, who explained the presentation, ED course, any pending results, and needed interventions. Pending results in clude CT head, chest x-ray, UA, type & screen for blood transfusion. Pt is currently stable and is lying comfortably. Pt had episode of syncope with lower GIB (BRBPR) 01/26/20 07:27 01/26/20 08:19 H/H 6.9/20.8, pt consented for pRBCs, ordered 1 unit PCP: Dr. Camp Onc: Dr. Preston GI: Dr. Baxter 01/26/20 08:21 01/26/20 08:[address] Watson 01/26/20 09:48 Discharge - Discharge Information Problems reviewed: Yes Clinical Impression/Diagnosis: Lower gastrointestinal bleed Syncope Qualifiers: Syncope type: unspecified Qualified Code(s): R55 - Syncope and collapse Anemia Qualifiers: Anemia type: unspecified type Qualified Code(s): D64.9 - Anemia, unspecified Condition: Stable - Admission Yes - Follow up/Referral Referrals: Kendy Camp MD [Primary Care Provider] - - Patient Discharge Instructions - Post Discharge Activity
[2020-01-26] MEDS ORDERED: PANTOPRAZOLE SODIUM 40 MG VIAL IVPUSH ONE (08:22)
[2020-01-26 08:23] LABS: VENOUS BASE EXCESS -5.3 mmol/L (-2-2); VENOUS O2 SATURATION 48.4 % (70-80); VENOUS PCO2 54.4 mmHg (38-52); VENOUS PH 7.226 (7.310-7.410)
[2020-01-26] MEDS ORDERED: ONDANSETRON 4 MG/2 ML VIAL IVPUSH ONE (08:42)
[2020-01-26] MEDS ORDERED: PANTOPRAZOLE SODIUM 40 MG VIAL ONE (09:02)
[2020-01-26 09:44] LABS: EPI CELLS 3 /uL (0-25.1); HYALINE CASTS 1 /uL (0-3.1); URINE APPEARANCE CLOUDY; URINE BACTERIA 676 /uL (0-1359); URINE BILIRUBIN NEGATIVE (NEGATIVE); URINE COLOR ORANGE; URINE GLUCOSE (UA) NEGATIVE (NEGATIVE); URINE KETONE NEGATIVE (NEGATIVE); URINE LEUK ESTERASE TRACE (NEGATIVE); URINE NITRITE NEGATIVE (NEGATIVE); URINE PROTEIN NEGATIVE (NEGATIVE); URINE UROBILINOGEN 0.2 mg/dL (0.2-1.0); URINE WBC 4 /uL (0-25.8)
[2020-01-26 09:51] LABS: URINE RBC 324.3 /uL (0-23.9)
--- NOTE | 2020-01-26 10:13 | EKG ---
Test Reason : Blood Pressure : / mmHG Vent. Rate : 073 BPM Atrial Rate : 073 BPM P-R Int : 110 ms QRS Dur : 076 ms QT Int : 368 ms P-R-T Axes : 061 032 080 degrees QTc Int : 405 ms SINUS RHYTHM WITH SINUS ARRHYTHMIA WITH SHORT MS NONSPECIFIC T WAVE ABNORMALITY ABNORMAL ECG WHEN COMPARED WITH ECG OF 04-DEC-2016 09:38, SINUS RHYTHM HAS REPLACED ATRIAL FIBRILLATION VENT. RATE HAS DECREASED BY 40 BPM QRS DURATION HAS DECREASED ST NO LONGER ELEVATED IN INFERIOR LEADS Confirmed by JUSTICE KITCHEN MD ([id number]) on 01/26/2020 10:13:33 AM Referred By: Confirmed By:JUSTICE KITCHEN MD
--- NOTE | 2020-01-26 12:28 | HP ---
Admitting History and Physical - Primary Care Physician PCP: Itz Hinojosa - Admission Chief Complaint: Syncope History of Present Illness: Pt presents to the ED complaining of syncope and lightheadness. States that there was blood on the floor when she woke up from her syncope. Immediately after syncope, then had diarrhea, that she described as "dark". Denies fever, nausea and vomiting. Denies diarrhea prior to syncope. Denies nausea and vomiting. Denies fever. - Past Medical History Cardiovascular: Yes: HTN ...: No Heme/Onc: Yes: Other (multiple myeloma since 2009) Musculoskeletal: Yes: Osteoarthritis - Past Surgical History Past Surgical History: Yes: Hysterectomy (AP-BSO for benign ovarian cyst), Joint Replacement (L femur indra 2009 for pathological fracture) - Smoking History Smoking history: Never smoked Have you smoked in the past 12 months: No - Alcohol/Substance Use Hx Alcohol Use: No - Social History ADL: Independent History of Recent Travel: No Home Medications - Allergies Allergies/Adverse Reactions: Allergies Allergy/AdvReac Type Severity Reaction Status Date / Time No Known Drug Allergies Allergy Verified 05/11/17 15:42 - Home Medications Home Medications: Ambulatory Orders Apixaban [Eliquis -] 5 mg PO BID 05/11/17 Atorvastatin Ca [Lipitor] 40 mg PO HS 05/11/17 Cholecalciferol (Vitamin D3) [Vitamin D3 -] 1,000 unit PO DAILY 05/11/17 Lisinopril [Prinivil] 5 mg PO DAILY 05/11/17 Metoprolol Succinate [Toprol Xl -] 25 mg PO DAILY 05/11/17 Pantoprazole Sodium [Protonix -] 40 mg PO DAILY 05/11/17 Valacyclovir HCl [Valtrex -] 500 mg PO DAILY 05/11/17 Review of Systems - Review of Systems Constitutional: reports: No Symptoms Eyes: reports: No Symptoms HENT: reports: No Symptoms Neck: reports: No Symptoms Cardiovascular: reports: No Symptoms Respiratory: reports: No Symptoms Gastrointestinal: reports: Other (Fresh blood in the stool) Endocrine: reports: No Symptoms Psychiatric: reports: No Symptoms Physical Examination Vital Signs: Vital Signs Temperature 98 F 01/26/20 07:02 Pulse Rate 74 01/26/20 07:02 Respiratory Rate 18 01/26/20 07:02 Blood Pressure 114/58 L 01/26/20 07:02 O2 Sat by Pulse Oximetry (%) 98 01/26/20 10:26 Constitutional: Yes: Well Nourished Eyes: Yes: WNL Neck: Yes: Supple Respiratory: Yes: Regular Gastrointestinal: Yes: Normal Bowel Sounds Musculoskeletal: Yes: WNL Extremities: Yes: WNL Integumentary: Yes: WNL Labs: CBC, BMP 01/26/20 05:50 01/26/20 05:50 Imaging - Results Chest X-ray: Report Reviewed Problem List - Problems (1) Anemia Assessment/Plan: Will give 2 blood transfusion today repeat CBC in the morning give her Protonix p.o. GI consult. Code(s): D64.9 - ANEMIA, UNSPECIFIED Qualifiers: Anemia type: unspecified type Qualified Code(s): D64.9 - Anemia, unspecified (2) Lower gastrointestinal bleed Assessment/Plan: Repeat labs in the morning after transfusion Code(s): K92.2 - GASTROINTESTINAL HEMORRHAGE, UNSPECIFIED (3) Syncope Code(s): R55 - SYNCOPE AND COLLAPSE Qualifiers: Syncope type: unspecified Qualified Code(s): R55 - Syncope and collapse (4) HTN (hypertension) Assessment/Plan: Continue metoprolol will hold lisinopril due to low blood pressure Code(s): I10 - ESSENTIAL (PRIMARY) HYPERTENSION Qualifiers: (5) Melanoma Assessment/Plan: As per oncology chemotherapy. Code(s): C43.9 - MALIGNANT MELANOMA OF SKIN, UNSPECIFIED
[2020-01-26 19:09] VITALS: BMI 23.3
[2020-01-26] MEDS ORDERED: MAG HYDROX/AL HYDROX/SIMETH 30 ML UNIT-DOSE CUP PO ONE (20:15)
[2020-01-26] MEDS ORDERED: ATORVASTATIN CA 40 MG TABLET (FP) PO SCH (22:00)
[2020-01-27 01:09] VITALS: PULSE 81
[2020-01-27 08:15] LABS: BASO % 0.4 % (0-2.0); EOS % 1.2 % (0-4.5); HEMATOCRIT 21.1 % (32.4-45.2); HEMOGLOBIN 7.2 GM/dL (10.7-15.3); LYMPH % 30.5 % (8-40); MCH 33.2 pg (25.7-33.7); MCHC 34.2 g/dl (32.0-36.0); MEAN CELL VOLUME 97.1 fl (80-96); MEAN PLT VOLUME 9.1 fl (7.5-11.1); MONO % 8.3 % (3.8-10.2); NEUT % 59.6 % (42.8-82.8); PLATELET COUNT 109 K/MM3 (134-434); RBC 2.17 M/mm3 (3.60-5.2); RDW 15.1 % (11.6-15.6); WHITE BLOOD COUNT 4.9 K/mm3 (4.0-10.0)
[2020-01-27] MEDS ORDERED: metoPROLOL SUCCINATE 25 MG TAB.SR.24H (FP) PO SCH (10:00)
[2020-01-27] MEDS ORDERED: PANTOPRAZOLE 40 MG TABLET PO SCH (10:00)
[2020-01-27 10:58] VITALS: BP 113/73; TEMP 98.2
--- NOTE | 2020-01-27 16:59 | DS ---
Physical Examination Vital Signs: Vital Signs Temperature 98.2 F 01/27/20 09:00 Pulse Rate 81 01/27/20 09:00 Respiratory Rate 18 01/27/20 09:00 Blood Pressure 113/73 01/27/20 09:00 O2 Sat by Pulse Oximetry (%) 97 01/27/20 09:00 Constitutional: Yes: Well Nourished HENT: Yes: Atraumatic Respiratory: Yes: Regular Gastrointestinal: Yes: Normal Bowel Sounds Musculoskeletal: Yes: WNL Extremities: Yes: WNL Neurological: Yes: WNL Psychiatric: Yes: WNL Labs: CBC, BMP 01/27/20 06:11 01/26/20 05:50 Discharge Summary Problems reviewed: Yes Reason For Visit: SYNCOPE,LOWER GASTRO HEMORRHAGE She had rectal bleeding causing anemia. Procedures: Principal: Blood transfusion she received 1 unit Hospital Course: This lady 69-year-old female with past medical history of hypertension atrial fibrillation and multiple myeloma came to the ER with syncope and rectal bleeding. Which she did not notice it but it was noticed in the ER. Her hemoglobin was 6.9 she will give a blood transfusion. GI consult was called but patient was not seen by because she wanted to go home. In the hospital after transfusion her hemoglobin went up to 7.1 and she is stable no symptoms. She agreed to go home and to be seen by a steward/stewardess night and get upper and lower scopes done. She had them 5 years ago at this time we will hold her blood t trina Jacksonnghia and will follow. - Instructions Diet, Activity, Other Instructions: Regular diet low-sodium Referrals: Kendy Camp MD [Primary Care Provider] - - Home Medications Comprehensive Discharge Medication List: Ambulatory Orders Apixaban [Eliquis -] 5 mg PO BID 05/11/17 Atorvastatin Ca [Lipitor] 40 mg PO HS 05/11/17 Cholecalciferol (Vitamin D3) [Vitamin D3 -] 1,000 unit PO DAILY 05/11/17 Lisinopril [Prinivil] 5 mg PO DAILY 05/11/17 Metoprolol Succinate [Toprol XL -] 25 mg PO DAILY 05/11/17 Pantoprazole Sodium [Protonix -] 40 mg PO DAILY 05/11/17 Valacyclovir HCl [Valtrex -] 500 mg PO DAILY 05/11/17 Prescription Drug Monitoring Program (I-STOP) results: I-STOP reviewed and no issues identified
== END 2020-01-27 16:26 | disposition home or self-care (01) | DRG 378 ==
LOC: JER 05:04 → JERBED 07:25 → J4W 18:52
PROVIDERS: ADMIT Internal Medicine; ATTEND Internal Medicine
PROC: 30233N1 Transfusion of Nonautologous Red Blood Cells into Peripheral Vein, Percutaneous Approach (ICD-10-PCS; principal; 2020-01-26)
DX: K92.2 Gastrointestinal hemorrhage, unspecified (principal); C90.00 Multiple myeloma not having achieved remission; R55 Syncope and collapse; I10 Essential (primary) hypertension; R01.0 Benign and innocent cardiac murmurs; E78.00 Pure hypercholesterolemia, unspecified; D64.9 Anemia, unspecified; C43.9 Malignant melanoma of skin, unspecified; I48.91 Unspecified atrial fibrillation
CPT/HCPCS: 36415; 36430; 70450-TC; 71045-TC-FY; 80053; 81003; 82272; 82550; 82803; 83605; 84443; 84484; 85025; 85610; 85730; 86850; 86900; 86901; 86922; 87040; 87086; 93005; 93010; 99285-25; P9058; U0003

== ENCOUNTER 2020-01-28 12:40 | Emergency (ER) | payer BC ==
--- NOTE | 2020-01-28 12:46 | PDOC ---
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 Patient reports she had black tarry stools and suffered a syncopal event on Tuesday morning, was found to have a hgb of 6.9 with a positive stool occult test. Patient was discharged yesterday. Post-transfusion hgb was 7.2 (up from 6.9) . Last coloscopy/endoscopy was about five years ago and was "fine."Since that time, she reports no acute changes. Has not had a bowel movement since the one on Tuesday morning. Endorsing weakness at baseline which improved after eating today. Patient has had a poor appetite. No fevers, chills, chest pain, or shortness of breath. PCP: Dr. Camp Tree Worker: Dr. Zhang GI: Dr. Baxter ROS: Constitutional: no fever, no chills HEENT: no throat pain, no dysphagia Cardiovascular: no chest pain, no palpitations Respiratory: no cough, no shortness of breath Gastrointestinal: no abdominal pain, no nausea Genitourinary: no dysuria, no hematuria Musculoskeletal: no myalgia, no arthralgia Skin: no rash, no itching Neurologic: no headache, +weakness Psych: no agitation, no anxiety PE: General: Awake, alert, and fully oriented, in no acute distress Head: No signs of trauma Eyes: EOMI, sclera anicteric ENT: Moist mucus membranes Neck: Normal ROM, supple Lungs: Lungs clear, Normal breath sounds Cardio: Regular rhythm, S1 and S2 present Abdomen: Soft, nontender. No guarding, no rebound, no masses Extremities: Normal range of motion, Distal pulses present Skin: Warm, Dry, normal turgor Neurologic: Cranial nerves II through XII grossly intact. Normal speech ED Course/MDM: DDX including but not limited to GI bleed, anemia of chronic disease, adverse effects from chemotherapy, metabolic derangement Labs, EKG, CXR Initial Vital Signs Temp Pulse Resp BP Pulse Ox 98.8 F 73 18 115/62 96 01/28/20 12:40 01/28/20 12:40 01/28/20 12:40 01/28/20 12:40 01/28/20 12:40 VSS Will consult with Dr. Baxter 01/28/20 12:46 CBC WBC 5.0 K/mm3 (4.0-10.8) 01/28/20 13:15 RBC 2.46 M/mm3 (3.60-5.2) L 01/28/20 13:15 Hgb 8.1 GM/dl (10.7-15.3) L 01/28/20 13:15 Hct 24.4 % (32.4-45.2) L 01/28/20 13:15 MCV 99.3 fl (80-96) H 01/28/20 13:15 MCH 33.0 pg (25.7-33.7) 01/28/20 13:15 MCHC 33.2 g/dl (32.0-36.0) 01/28/20 13:15 RDW 14.7 % (11.6-15.6) 01/28/20 13:15 Plt Count 154 K/MM3 (134-434) 01/28/20 13:15 MPV 9.3 fl (7.5-11.1) 01/28/20 13:15 Absolute Neuts (auto) 3.9 K/mm3 01/28/20 13:15 Neutrophils % 76.7 % (42.8-82.8) 01/28/20 13:15 Lymphocytes % 18.4 % (8-40) 01/28/20 13:15 Monocytes % 3.8 % (3.8-10.2) 01/28/20 13:15 Eosinophils % 0.7 % (0-4.5) 01/28/20 13:15 Basophils % 0.4 % (0-2.0) 01/28/20 13:15 No leukocytosis Hgb 8.1, increased from yesterday's value of 7.2 CMP Sodium 138 mmol/L (136-145) 01/28/20 13:15 Potassium 3.7 mmol/L (3.5-5.1) 01/28/20 13:15 Chloride 107 mmol/L (98-107) 01/28/20 13:15 Carbon Dioxide 22 mmol/L (21-32) 01/28/20 13:15 Anion Gap 9 MMOL/L (8-16) 01/28/20 13:15 BUN 20.0 mg/dl (7-18) H 01/28/20 13:15 Creatinine 1.2 mg/dl (0.55-1.3) 01/28/20 13:15 Est GFR (CKD-EPI)AfAm 53.40 01/28/20 13:15 Est GFR (CKD-EPI)NonAf 46.07 01/28/20 13:15 Random Glucose 93 mg/dl (74-106) 01/28/20 13:15 Calcium 8.0 mg/dl (8.5-10) L 01/28/20 13:15 Total Bilirubin 0.7 mg/dl (0.2-1) 01/28/20 13:15 AST 35 U/L (15-37) 01/28/20 13:15 ALT 37 U/L (13-61) 01/28/20 13:15 Alkaline Phosphatase 49 U/L (45-117) 01/28/20 13:15 Total Protein 5.3 g/dl (6.4-8.2) L 01/28/20 13:15 Albumin 3.0 g/dl (3.4-5.0) L 01/28/20 13:15 Electrolytes unremarkable Cr normal No transaminitis CXR unchanged from previous radiograph performed on 01/26/[address] Baxter's office, , line is busy 01/28/20 14:[address] Baxter, patient likely had an upper GI on Sat AM but patient clinically stable for outpatient workup. Has an appointment on Tue Patient should be on protonix; Has a prescription listed from 2016-- I will check if patient is still taking this 01/28/20 14:[address] Zhang who is in agreement with Dr. Baxter 01/28/20 14:44 Patient amenable to the plan for outpatient GI workup Understands the importance of following-up wiht Dr. Baxter on Tuesday Not currently on protonix; I will send this to the pharmacy Return precautions Stable for discharge 01/28/20 14:57 Past History - Medical History Allergies/Adverse Reactions: Allergies Allergy/AdvReac Type Severity Reaction Status Date / Time No Known Drug Allergies Allergy Verified 01/28/20 12:42 Home Medications: Ambulatory Orders Atorvastatin Ca [Lipitor] 40 mg PO HS 05/11/17 Lisinopril [Prinivil] 5 mg PO DAILY 05/11/17 Valacyclovir HCl [Valtrex -] 500 mg PO ASDIR 05/11/17 Amlodipine Besylate 5 mg PO DAILY 01/28/20 Dexamethasone mg PO DAILY 01/28/20 Anemia: Yes Asthma: No Cancer: Yes (Multiple Myeloma since 2009, Last chemo session - 01/23/2020) Cardiac Disorders: Yes (Benign murmur) CVA: No COPD: No CHF: No DVT: No Dementia: No Diabetes: No GI Disorders: Yes (GERD/Gasttric reflux) Disorders: No HTN: Yes Hypercholesterolemia: Yes Liver Disease: No Seizures: No Thyroid Disease: No - Surgical History Abdominal Surgery: Yes (Hysterectomy- AP/BSO) Appendectomy: No Cardiac Surgery: No Cholecystectomy: No Lung Surgery: No Neurologic Surgery: No Orthopedic Surgery: Yes (Jones placement on left femur) - Immunization History Immunization Up to Date: Yes - Psycho-Social/Smoking History Smoking History: Never smoked Have you smoked in the past 12 months: No ED Treatment Course - LABORATORY CBC & Chemistry Diagram: 01/28/20 13:15 01/28/20 13:15 Discharge - Discharge Information Problems reviewed: Yes Clinical Impression/Diagnosis: Anemia Qualifiers: Anemia type: unspecified type Qualified Code(s): D64.9 - Anemia, unspecified Condition: Stable Disposition: HOME - Follow up/Referral Referrals: Kendy Camp MD [Primary Care Provider] - - Patient Discharge Instructions Patient Printed Discharge Instructions: Gastrointestinal Bleeding Additional Instructions: You came into the emergency department. Our workup did not indicate acute pathology. We spoke with your GI doctor who will see you on Tuesday at your already scheduled appointment. Prescription sent to your pharmacy. Take as instructed. Continue taking home medications as prescribed by your physician. Avoid taking NSAIDS like motrin, ibuprofen, naprosyn, or advil. Immediate medical attention is required if you have: any lightheadedness, dizziness, chest pain, shortness of breath, persistent black tarry stools, bright red blood per rectum, blood in your vomit, any severe abdominal pain, or any other new or concerning symptoms. If you think you are having an emergency, call for emergency medical services or present to the emergency department right away. - Post Discharge Activity
--- NOTE | 2020-01-28 13:08 | PDOC ---
Attending Attestation - Resident Resident Name: Samra Jasmine - ED Attending Attestation I have performed the following: I have examined & evaluated the patient, The case was reviewed & discussed with the resident, I agree w/resident's findings & plan, Exceptions are as noted - HPI HPI: 01/28/20 13:13 60y F hx of afib (off ac), MM (currently on chemo, last cycle on ), htn, sent for evaluation from her professor of english. Pt was recently seen in the ED for evaluation of syncope, when having a bloody bowel movement, and was found to be anemic, was transfused. She went to her PMDs office who referred her to the ED due to concern she needs a GI workup as she is on steroids, and concern for a GIB. Pt is otherwise asymptmatic currently deneis any cp, sob, palpitations, bloody stool, n/v, abd pain. No prior history of UGIB/Ulcers. denies mayte abuse, nsaid abuse PCP: Dr. Camp Flute Teacher: Dr. Zhang GI: Dr. Baxter - Physicial Exam PE: 01/28/20 14:32 GENERAL: The patient is awake, alert, and fully oriented, Nontoxic - in no acute distress. HEAD: Normocephalic, atraumatic. EYES: extraocular movements intact, sclera anicteric, conjunctiva clear. ENT: Normal voice, Moist mucous membranes. NECK: Normal range of motion, supple LUNGS: Breath sounds equal, clear to auscultation bilaterally. No wheezes, no rhonchi, no rales. HEART: Regular rate and rhythm, normal S1 and S2 without murmur, rub or gallop. ABDOMEN: Soft, nontender, No guarding, no rebound. No CVA tenderness EXTREMITIES: Normal range of motion, no edema. NEUROLOGICAL: No facial assymetry, Normal speech, moving all 4 ext spontaneously and symemtrically PSYCH: Normal mood, normal affect. SKIN: Warm, Dry, normal turgor, - Medical Decision Making 01/28/20 14:33 will recheck labs to see if she is persistently anemic will dw GI 01/28/20 15:05 pts labs reviewed hbg stable bun normal vitals normal case dw gi, will see her on pt hemodynamicall stable will dc with protonix pt comfortable with plan strict return precautions were discussed I discussed the physical exam findings, ancillary test results and final diagnoses with the patient. I answered all of the patient's questions. The patient was satisfied with the care received and felt comfortable with the discharge plan and treatment plan. The patient will call their primary care physician within 24 hours to arrange follow-up and will return to the Emergency Department with any new, persistent or worsening symptoms. Heart Score/ECG Review - ECG Impressions Comment:: 01/28/20 15:12 Twelve-lead EKG was performed and reviewed by me. There is normal sinus rhythm with a normal rate. rate of 72 nonspecific twi Impression: NSR Discharge - Discharge Information Problems reviewed: Yes Clinical Impression/Diagnosis: Anemia Qualifiers: Anemia type: unspecified type Qualified Code(s): D64.9 - Anemia, unspecified Condition: Stable Disposition: HOME - Additional Discharge Information Prescriptions: Pantoprazole Sodium [Protonix -] 40 mg PO BID #14 tablet - Follow up/Referral Referrals: Kendy Camp MD [Primary Care Provider] - - Patient Discharge Instructions Patient Printed Discharge Instructions: Gastrointestinal Bleeding Additional Instructions: You came into the emergency department. Our workup did not indicate acute pathology. We spoke with your GI doctor who will see you on Tuesday at your already scheduled appointment. Prescription sent to your pharmacy. Take as instructed. Continue taking home medications as prescribed by your physician. Avoid taking NSAIDS like motrin, ibuprofen, naprosyn, or advil. Immediate medical attention is required if you have: any lightheadedness, dizziness, chest pain, shortness of breath, persistent black tarry stools, bright red blood per rectum, blood in your vomit, any severe abdominal pain, or any other new or concerning symptoms. If you think you are having an emergency, call for emergency medical services or present to the emergency department right away. - Post Discharge Activity
[2020-01-28 13:11] VITALS: TEMP 98.8; BMI 24.0
[2020-01-28 13:48] LABS: BASO % 0.4 % (0-2.0); EOS % 0.7 % (0-4.5); HEMATOCRIT 24.4 % (32.4-45.2); HEMOGLOBIN 8.1 GM/dl (10.7-15.3); LYMPH % 18.4 % (8-40); MCHC 33.2 g/dl (32.0-36.0); MEAN CELL VOLUME 99.3 fl (80-96); MEAN PLT VOLUME 9.3 fl (7.5-11.1); MONO % 3.8 % (3.8-10.2); NEUT % 76.7 % (42.8-82.8); PLATELET COUNT 154 K/MM3 (134-434); RBC 2.46 M/mm3 (3.60-5.2); RDW 14.7 % (11.6-15.6)
[2020-01-28 13:49] LABS: ACTIVATED PTT 20.8 SECONDS (25.2-36.5)
[2020-01-28 13:52] LABS: BILIRUBIN,TOTAL 0.7 mg/dl (0.2-1); CREATININE 1.2 mg/dl (0.55-1.3); POTASSIUM 3.7 mmol/L (3.5-5.1); TOT PROT 5.3 g/dl (6.4-8.2)
[2020-01-28 13:53] LABS: INR 1.13 (0.82-1.09); PROTHROMBIN TIME (PATIENT) 12.6 SEC (10.2-13.0)
[2020-01-28 14:49] VITALS: BP 118/57; PULSE 63
--- NOTE | 2020-01-28 17:49 | EKG ---
Test Reason : Blood Pressure : / mmHG Vent. Rate : 072 BPM Atrial Rate : 072 BPM P-R Int : 112 ms QRS Dur : 082 ms QT Int : 386 ms P-R-T Axes : 059 030 055 degrees QTc Int : 422 ms NORMAL SINUS RHYTHM MINIMAL VOLTAGE CRITERIA FOR LVH, MAY BE NORMAL VARIANT NONSPECIFIC T WAVE ABNORMALITY ABNORMAL ECG WHEN COMPARED WITH ECG OF 26-JAN-2020 06:18, NO SIGNIFICANT CHANGE WAS FOUND Confirmed by ALAN LANDAVERDE MD ([id number]) on 01/28/2020 5:49:07 PM Referred By: VAMSHI MACKEY Confirmed By:ALAN LANDAVERDE MD
== END 2020-01-28 15:18 | disposition home or self-care (01) ==
LOC: FER 12:40
DX: D64.9 Anemia, unspecified (principal)
CPT/HCPCS: 36415; 71045-TC-FY; 80053; 85025; 85610; 85730; 86850; 86870; 86900; 86901; 86902; 93005; 99285-25

== ENCOUNTER 2020-02-07 08:04 | Day surgery (SDC) | payer BC ==
[2020-02-06 17:20] VITALS: BMI 24.0
[2020-02-07 09:49] VITALS: BP 103/58; PULSE 61; TEMP 98.9
--- NOTE | 2020-02-08 12:02 | PATH ---
Surgical Pathology Report Patient Name: EBONI CALZADA [facility]. Rec. #: [id number] /Age/Gender: 1950 (Age: 69) / F Account: [id number] Location: [facility] Taken: 02/07/2020 Received: 02/07/2020 Reported: 02/08/2020 Physicians: Balaji Baxter M.D. Specimen(s) Received A: SECOND PORTION DUODENUM B: ANTRUM Clinical History GERD, GI bleed Postoperative diagnosis: gastritis, small hiatal hernia Final Diagnosis A. DUODENUM, SECOND PORTION, BIOPSY: DUODENAL MUCOSA WITHOUT SIGNIFICANT PATHOLOGIC FINDINGS. B. GASTRIC ANTRUM, BIOPSY : GASTRIC ANTRAL MUCOSA WITH MODERATE CHRONIC ACTIVE GASTRITIS AND FOCAL INTESTINAL METAPLASIA. NO DYSPLASIA IDENTIFIED. IMMUNOHISTOCHEMICAL STAIN FOR H. PYLORI IS NEGATIVE. Positive and negative controls (internal if applicable) show appropriate results. Electronically Signed Effie Lew M.D. Gross Description A. Received in formalin, labeled "biopsy second portion of duodenum" are 2 lama, irregular portions of soft tissue averaging 0.3 cm. in greatest dimension. The specimens are submitted in toto in one cassette. B. Received in formalin, labeled "biopsy gastric antrum" are 2 lama, irregular portions of soft tissue averaging 0.4 cm. in greatest dimension. The specimens are submitted in toto in one cassette. /02/07/2020 saudi02/07/2020
== END 2020-02-07 09:50 | disposition home or self-care (01) ==
LOC: FASU-ENDO 08:04
PROVIDERS: ATTEND Internal Medicine Gastroenterology
PROC: 0DB68ZX Excision of Stomach, Via Natural or Artificial Opening Endoscopic, Diagnostic (ICD-10-PCS; 2020-02-07)
PROC: 0DB98ZX Excision of Duodenum, Via Natural or Artificial Opening Endoscopic, Diagnostic (ICD-10-PCS; principal; 2020-02-07 08:56)
DX: K92.1 Melena (principal); K29.50 Unspecified chronic gastritis without bleeding; K31.9 Disease of stomach and duodenum, unspecified; K44.9 Diaphragmatic hernia without obstruction or gangrene
CPT/HCPCS: 88305-TC; 88342-TC

== ENCOUNTER 2020-05-17 13:09 | Emergency (ER) | payer BC, OTHER ==
[2020-05-17 13:16] VITALS: BP 125/63; PULSE 80; TEMP 98.8; BMI 24.9
[2020-05-17 14:34] LABS: BASO % 0.6 % (0-2.0); HEMOGLOBIN 10.6 GM/dl (10.7-15.3); MCH 29.9 pg (25.7-33.7); MCHC 32.1 g/dl (32.0-36.0); MEAN CELL VOLUME 93.1 fl (80-96); MEAN PLT VOLUME 10.5 fl (7.5-11.1); MONO % 1.6 % (3.8-10.2); NEUT % 89.8 % (42.8-82.8); PLATELET COUNT 109 K/MM3 (134-434); RBC 3.54 M/mm3 (3.60-5.2); RDW 16.3 % (11.6-15.6); WHITE BLOOD COUNT 8.8 K/mm3 (4.0-10.8)
[2020-05-17 14:42] LABS: ALBUMIN 2.9 g/dl (3.4-5.0); BILIRUBIN,TOTAL 0.6 mg/dl (0.2-1); CALCIUM 8.7 mg/dl (8.5-10); POTASSIUM 3.1 mmol/L (3.5-5.1); TOT PROT 5.9 g/dl (6.4-8.2)
[2020-05-17] MEDS ORDERED: POTASSIUM CHLORIDE TABS 20 MEQ TABLET.ER (FP) PO ONE ×2 (15:32→15:36)
== END 2020-05-17 15:46 | disposition home or self-care (01) ==
LOC: FER 13:09
DX: E87.6 Hypokalemia (principal)
CPT/HCPCS: 36415; 80053; 83735; 85025; 99283-25

== ENCOUNTER 2020-05-20 16:32 | Inpatient (IN) | payer BC, OTHER ==
[2020-05-20 18:54] LABS: HEMOGLOBIN 10.6 GM/dl (10.7-15.3)
[2020-05-20 19:00] LABS: BASO % 0.3 % (0-2.0); EOS % 0.7 % (0-4.5); HEMATOCRIT 33.7 % (32.4-45.2); LYMPH % 11.1 % (8-40); MCH 28.9 pg (25.7-33.7); MCHC 31.3 g/dl (32.0-36.0); MEAN CELL VOLUME 92.2 fl (80-96); MEAN PLT VOLUME 10.1 fl (7.5-11.1); MONO % 1.6 % (3.8-10.2); NEUT % 86.3 % (42.8-82.8); PLATELET COUNT 64 K/MM3 (134-434); RBC 3.66 M/mm3 (3.60-5.2)
[2020-05-20 19:01] LABS: ALBUMIN 2.6 g/dl (3.4-5.0); BILIRUBIN,TOTAL 0.5 mg/dl (0.2-1); CALCIUM 8.7 mg/dl (8.5-10); CREATININE 0.9 mg/dl (0.55-1.3); MAGNESIUM 1.9 mg/dL (1.8-2.4); PHOSPHOROUS 4.3 mg/dl (2.5-4.9); TOT PROT 5.3 g/dl (6.4-8.2)
[2020-05-20] MEDS ORDERED: DEXAMETHASONE SOD PHOSPHATE 10 MG/1 ML VIAL IVPUSH ONE (20:05)
[2020-05-20] MEDS ORDERED: DEXAMETHASONE SOD PHOSPHATE 10 MG/1 ML VIAL ONE (20:29)
[2020-05-20] MEDS ORDERED: ACETAMINOPHEN 500 MG TABLET (FP) ONE (20:29)
[2020-05-20] MEDS ORDERED: ACETAMINOPHEN 500 MG TABLET (FP) PO ONE (20:45)
[2020-05-21] MEDS ORDERED: ALBUTEROL SO4 HFA INHALER IH PRN (02:02)
[2020-05-21] MEDS ORDERED: ACETAMINOPHEN 325 MG TABLET (FP) PO PRN (02:02)
[2020-05-21 03:38] VITALS: BMI 24.2
[2020-05-21 10:07] LABS: HEMATOCRIT 35.9 % (32.4-45.2); HEMOGLOBIN 11.8 GM/dL (10.7-15.3); LYMPH % 16.8 % (8-40); MCH 29.8 pg (25.7-33.7); MCHC 32.8 g/dl (32.0-36.0); MEAN PLT VOLUME 10.5 fl (7.5-11.1); MONO % 3.8 % (3.8-10.2); NEUT % 78.4 % (42.8-82.8); PLATELET COUNT 71 K/MM3 (134-434); RBC 3.94 M/mm3 (3.60-5.2); RDW 16.8 % (11.6-15.6); WHITE BLOOD COUNT 3.7 K/mm3 (4.0-10.0)
[2020-05-21 10:10] LABS: ALBUMIN 2.6 g/dl (3.4-5.0); CALCIUM 8.5 mg/dL (8.5-10.1)
[2020-05-21 10:11] LABS: BLOOD UREA NITROGEN 18.7 mg/dL (7-18)
[2020-05-21 10:14] LABS: CREATININE 0.8 mg/dL (0.55-1.3)
[2020-05-21 10:15] LABS: BILIRUBIN,TOTAL 0.5 mg/dL (0.2-1); TOT PROT 5.9 g/dl (6.4-8.2)
[2020-05-21] MEDS: LISINOPRIL 5 MG TABLET PO SCH (10:41)
[2020-05-21] MEDS: ASCORBIC ACID 500 MG TABLET (FP) PO SCH ×2 (10:41→21:11)
[2020-05-21] MEDS: CHOLECALCIFEROL (VIT D3) 1,000 UNIT (25 MCG) TABLET PO SCH (10:41)
[2020-05-21] MEDS: DEXAMETHASONE SOD PHOSPHATE 4 MG/1 ML VIAL IVPUSH SCH (10:41)
[2020-05-21] MEDS: ENOXAPARIN NA (PORCINE) 40 MG/0.4 ML DISP.SYRIN SQ SCH (10:42)
[2020-05-21] MEDS: amLODIPine BESYLATE 5 MG TABLET (FP) PO SCH (10:42)
[2020-05-21] MEDS ORDERED: ONDANSETRON 4 MG TABLET PO PRN (10:56)
[2020-05-21 11:00] LABS: ANISOCYTOSIS 0; MACROCYTOSIS 0; PLATELET ESTIMATE DECREASED
[2020-05-21] MEDS: ZINC SULFATE 220 MG CAPSULE (FP) PO SCH (14:45)
[2020-05-21] MEDS ORDERED: REMDESIVIR 200 MG in SODIUM CHLORIDE 210 ML IVPB ONE (19:00)
[2020-05-21] MEDS: ATORVASTATIN CA 40 MG TABLET (FP) PO SCH (21:11)
[2020-05-21] MEDS: PANTOPRAZOLE 40 MG TABLET PO SCH (21:11)
[2020-05-22] MEDS ORDERED: PT OWN MED DRAWER 7, Y5N ONE ×2 (06:03→21:05)
[2020-05-22] MEDS: CHOLECALCIFEROL (VIT D3) 1,000 UNIT (25 MCG) TABLET PO SCH (09:00)
[2020-05-22] MEDS: ENOXAPARIN NA (PORCINE) 40 MG/0.4 ML DISP.SYRIN SQ SCH (09:00)
[2020-05-22] MEDS: ZINC SULFATE 220 MG CAPSULE (FP) PO SCH (09:00)
[2020-05-22] MEDS: LISINOPRIL 5 MG TABLET PO SCH (09:00)
[2020-05-22] MEDS: amLODIPine BESYLATE 5 MG TABLET (FP) PO SCH (09:00)
[2020-05-22] MEDS: DEXAMETHASONE SOD PHOSPHATE 4 MG/1 ML VIAL IVPUSH SCH (09:00)
[2020-05-22] MEDS: ASCORBIC ACID 500 MG TABLET (FP) PO SCH ×2 (09:00→21:12)
[2020-05-22 09:46] LABS: BASO % 0.4 % (0-2.0); HEMATOCRIT 32.5 % (32.4-45.2); HEMOGLOBIN 10.6 GM/dL (10.7-15.3); LYMPH % 7.2 % (8-40); MCH 29.6 pg (25.7-33.7); MCHC 32.5 g/dl (32.0-36.0); MEAN CELL VOLUME 91.1 fl (80-96); MEAN PLT VOLUME 10.8 fl (7.5-11.1); MONO % 3.2 % (3.8-10.2); NEUT % 89.2 % (42.8-82.8); PLATELET COUNT 86 K/MM3 (134-434); RBC 3.57 M/mm3 (3.60-5.2); RDW 17.1 % (11.6-15.6); WHITE BLOOD COUNT 7.7 K/mm3 (4.0-10.0)
[2020-05-22 10:10] LABS: CALCIUM 8.3 mg/dL (8.5-10.1)
[2020-05-22 10:11] LABS: BLOOD UREA NITROGEN 23.9 mg/dL (7-18)
[2020-05-22 10:12] LABS: ALBUMIN 2.3 g/dl (3.4-5.0)
[2020-05-22 10:14] LABS: BILIRUBIN,TOTAL 0.6 mg/dL (0.2-1); CREATININE 0.9 mg/dL (0.55-1.3); TOT PROT 5.2 g/dl (6.4-8.2)
[2020-05-22] MEDS: REMDESIVIR 100 MG in SODIUM CHLORIDE 230 ML IVPB SCH (21:00)
[2020-05-22] MEDS: PANTOPRAZOLE 40 MG TABLET PO SCH (21:12)
[2020-05-22] MEDS: ATORVASTATIN CA 40 MG TABLET (FP) PO SCH (21:12)
[2020-05-23 08:04] LABS: ALBUMIN 2.6 g/dl (3.4-5.0); BLOOD UREA NITROGEN 29.6 mg/dL (7-18); CALCIUM 8.6 mg/dL (8.5-10.1); MAGNESIUM 2.3 mg/dL (1.8-2.4)
[2020-05-23 08:08] LABS: CREATININE 0.8 mg/dL (0.55-1.3)
[2020-05-23 08:09] LABS: BILIRUBIN,TOTAL 0.6 mg/dL (0.2-1)
[2020-05-23 08:10] LABS: BASO % 0.4 % (0-2.0); HEMATOCRIT 36.9 % (32.4-45.2); HEMOGLOBIN 12.3 GM/dL (10.7-15.3); LYMPH % 15.7 % (8-40); MCH 30.2 pg (25.7-33.7); MCHC 33.2 g/dl (32.0-36.0); MEAN PLT VOLUME 10.8 fl (7.5-11.1); MONO % 6.2 % (3.8-10.2); NEUT % 77.7 % (42.8-82.8); RBC 4.06 M/mm3 (3.60-5.2); RDW 17.4 % (11.6-15.6); WHITE BLOOD COUNT 7.3 K/mm3 (4.0-10.0)
[2020-05-23 08:38] LABS: PROTHROMBIN TIME (PATIENT) 12.3 SEC (9.7-13.0)
[2020-05-23 08:39] LABS: ACTIVATED PTT 24.2 SECONDS (25.2-36.5)
[2020-05-23] MEDS ORDERED: PT OWN MED DRAWER 7, Y5N ONE (09:34)
[2020-05-23] MEDS: CHOLECALCIFEROL (VIT D3) 1,000 UNIT (25 MCG) TABLET PO SCH (09:36)
[2020-05-23] MEDS: DEXAMETHASONE SOD PHOSPHATE 4 MG/1 ML VIAL IVPUSH SCH (09:36)
[2020-05-23] MEDS: ASCORBIC ACID 500 MG TABLET (FP) PO SCH ×2 (09:36→21:13)
[2020-05-23] MEDS: ENOXAPARIN NA (PORCINE) 40 MG/0.4 ML DISP.SYRIN SQ SCH (09:36)
[2020-05-23] MEDS: ZINC SULFATE 220 MG CAPSULE (FP) PO SCH (09:36)
[2020-05-23] MEDS: LISINOPRIL 5 MG TABLET PO SCH (09:36)
[2020-05-23] MEDS: amLODIPine BESYLATE 5 MG TABLET (FP) PO SCH (09:36)
[2020-05-23 11:33] LABS: PLATELET ESTIMATE NORMAL
[2020-05-23 11:48] LABS: PLATELET COUNT 190 K/MM3 (134-434)
[2020-05-23] MEDS: REMDESIVIR 100 MG in SODIUM CHLORIDE 230 ML IVPB SCH (21:00)
[2020-05-23] MEDS: PANTOPRAZOLE 40 MG TABLET PO SCH (21:13)
[2020-05-23] MEDS: ATORVASTATIN CA 40 MG TABLET (FP) PO SCH (21:13)
[2020-05-24 08:31] LABS: CALCIUM 8.2 mg/dL (8.5-10.1)
[2020-05-24 08:32] LABS: ALBUMIN 2.4 g/dl (3.4-5.0)
[2020-05-24 08:35] LABS: BILIRUBIN,TOTAL 0.7 mg/dL (0.2-1); CREATININE 0.8 mg/dL (0.55-1.3); TOT PROT 5.4 g/dl (6.4-8.2)
[2020-05-24] MEDS: ENOXAPARIN NA (PORCINE) 40 MG/0.4 ML DISP.SYRIN SQ SCH (09:50)
[2020-05-24] MEDS: ZINC SULFATE 220 MG CAPSULE (FP) PO SCH (09:50)
[2020-05-24] MEDS: CHOLECALCIFEROL (VIT D3) 1,000 UNIT (25 MCG) TABLET PO SCH (09:50)
[2020-05-24] MEDS: LISINOPRIL 5 MG TABLET PO SCH (09:50)
[2020-05-24] MEDS: ASCORBIC ACID 500 MG TABLET (FP) PO SCH ×2 (09:50→21:04)
[2020-05-24] MEDS: amLODIPine BESYLATE 5 MG TABLET (FP) PO SCH (09:50)
[2020-05-24] MEDS: DEXAMETHASONE SOD PHOSPHATE 4 MG/1 ML VIAL IVPUSH SCH (09:50)
[2020-05-24] MEDS: REMDESIVIR 100 MG in SODIUM CHLORIDE 230 ML IVPB SCH (21:00)
[2020-05-24] MEDS: ATORVASTATIN CA 40 MG TABLET (FP) PO SCH (21:01)
[2020-05-24] MEDS: PANTOPRAZOLE 40 MG TABLET PO SCH (21:01)
[2020-05-25 08:46] LABS: BASO % 0.1 % (0-2.0); HEMOGLOBIN 10.9 GM/dL (10.7-15.3); LYMPH % 23.7 % (8-40); MCH 29.9 pg (25.7-33.7); MCHC 33.1 g/dl (32.0-36.0); MEAN CELL VOLUME 90.1 fl (80-96); MEAN PLT VOLUME 11.1 fl (7.5-11.1); MONO % 8.1 % (3.8-10.2); NEUT % 68.1 % (42.8-82.8); PLATELET COUNT 94 K/MM3 (134-434); RBC 3.66 M/mm3 (3.60-5.2); WHITE BLOOD COUNT 5.8 K/mm3 (4.0-10.0)
[2020-05-25 09:05] LABS: ALBUMIN 2.4 g/dl (3.4-5.0); BLOOD UREA NITROGEN 26.8 mg/dL (7-18); CALCIUM 8.2 mg/dL (8.5-10.1)
[2020-05-25 09:10] LABS: BILIRUBIN,TOTAL 0.6 mg/dL (0.2-1); CREATININE 0.9 mg/dL (0.55-1.3); TOT PROT 5.1 g/dl (6.4-8.2)
[2020-05-25] MEDS: ENOXAPARIN NA (PORCINE) 40 MG/0.4 ML DISP.SYRIN SQ SCH (09:35)
[2020-05-25] MEDS: DEXAMETHASONE SOD PHOSPHATE 4 MG/1 ML VIAL IVPUSH SCH (09:35)
[2020-05-25] MEDS: ASCORBIC ACID 500 MG TABLET (FP) PO SCH ×2 (09:35→22:21)
[2020-05-25] MEDS: ZINC SULFATE 220 MG CAPSULE (FP) PO SCH (09:35)
[2020-05-25] MEDS: LISINOPRIL 5 MG TABLET PO SCH (09:35)
[2020-05-25] MEDS: amLODIPine BESYLATE 5 MG TABLET (FP) PO SCH (09:35)
[2020-05-25] MEDS: CHOLECALCIFEROL (VIT D3) 1,000 UNIT (25 MCG) TABLET PO SCH (09:35)
[2020-05-25 10:36] LABS: ANISOCYTOSIS 1+; MACROCYTOSIS 0; PLATELET ESTIMATE DECREASED
[2020-05-25] MEDS ORDERED: PT OWN MED DRAWER 7, Y5N ONE (20:28)
[2020-05-25] MEDS: REMDESIVIR 100 MG in SODIUM CHLORIDE 230 ML IVPB SCH (20:41)
[2020-05-25] MEDS: PANTOPRAZOLE 40 MG TABLET PO SCH (22:21)
[2020-05-25] MEDS: ATORVASTATIN CA 40 MG TABLET (FP) PO SCH (22:21)
[2020-05-26] MEDS: DEXAMETHASONE SOD PHOSPHATE 4 MG/1 ML VIAL IVPUSH SCH (09:10)
[2020-05-26] MEDS: ASCORBIC ACID 500 MG TABLET (FP) PO SCH (09:10)
[2020-05-26] MEDS: LISINOPRIL 5 MG TABLET PO SCH (09:10)
[2020-05-26] MEDS: CHOLECALCIFEROL (VIT D3) 1,000 UNIT (25 MCG) TABLET PO SCH (09:10)
[2020-05-26] MEDS: ENOXAPARIN NA (PORCINE) 40 MG/0.4 ML DISP.SYRIN SQ SCH (09:10)
[2020-05-26] MEDS: amLODIPine BESYLATE 5 MG TABLET (FP) PO SCH (09:10)
[2020-05-26] MEDS: ZINC SULFATE 220 MG CAPSULE (FP) PO SCH (09:11)
[2020-05-26 09:27] LABS: CALCIUM 8.2 mg/dL (8.5-10.1)
[2020-05-26 09:29] LABS: ALBUMIN 2.4 g/dl (3.4-5.0); BLOOD UREA NITROGEN 34.2 mg/dL (7-18)
[2020-05-26 09:30] LABS: BILIRUBIN,TOTAL 0.9 mg/dL (0.2-1)
[2020-05-26 09:32] LABS: CREATININE 0.9 mg/dL (0.55-1.3)
[2020-05-26 13:01] VITALS: BP 137/80; PULSE 61; TEMP 98.7
== END 2020-05-26 13:33 | disposition home or self-care (01) | DRG 177 ==
LOC: FER 16:32 → J6S 05-21 03:00
PROVIDERS: ADMIT Internal Medicine; ATTEND Internal Medicine
PROC: XW13325 Transfusion of Convalescent Plasma (Nonautologous) into Peripheral Vein, Percutaneous Approach, New Technology Group 5 (ICD-10-PCS; principal; 2020-05-23)
PROC: XW033E5 Introduction of Remdesivir Anti-infective into Peripheral Vein, Percutaneous Approach, New Technology Group 5 (ICD-10-PCS; 2020-05-23)
DX: U07.1 COVID-19 (principal); J12.89 Other viral pneumonia; J96.01 Acute respiratory failure with hypoxia; C90.00 Multiple myeloma not having achieved remission; R53.1 Weakness; R05 Cough; I10 Essential (primary) hypertension; E78.5 Hyperlipidemia, unspecified; E87.6 Hypokalemia; D64.9 Anemia, unspecified; I48.91 Unspecified atrial fibrillation
CPT/HCPCS: 36415; 36430; 71045-TC-FY; 80053; 82550; 82728; 83615; 83735; 84100; 84484; 85025; 85379; 85610; 85730; 86140; 86850; 86870; 86900; 86901; 86902; 87040; 87804; 93005; 99285-25; C9399; C9803; J1100; P9017; U0003

== ENCOUNTER 2023-07-11 13:36 | Observation (INO) | payer BC, OTHER ==
[2023-07-11] MEDS ORDERED: ACETAMINOPHEN INJECTION 100 ML IVPB ONE (15:51)
[2023-07-11] MEDS ORDERED: MAG HYDROX/AL HYDROX/SIMETH 30 ML UNIT-DOSE CUP ONE (15:51)
[2023-07-11] MEDS ORDERED: ONDANSETRON 4 MG/2 ML VIAL ONE (15:52)
[2023-07-11] MEDS ORDERED: FAMOTIDINE 20 MG/50 ML IVPB 20 MG/50 ML MG IVPB ONE (15:52)
[2023-07-11] MEDS: ACETAMINOPHEN 1000 MG/100 ML BAG IVPB ONE (16:36)
[2023-07-11] MEDS: FAMOTIDINE 20 MG/50 ML IVPB 20 MG/50 ML MG IVPB ONE (16:36)
[2023-07-11] MEDS: MAG HYDROX/AL HYDROX/SIMETH 30 ML UNIT-DOSE CUP PO ONE (16:36)
[2023-07-11] MEDS: LACTATED RINGERS SOLUTION 1000 ML INFUS.BAG IV ONE (16:36)
[2023-07-11] MEDS: ONDANSETRON 4 MG/2 ML VIAL IVPUSH ONE (16:36)
[2023-07-11 16:45] LABS: BASO % 0.9 % (0-2.0); EOS % 4.7 % (0-4.5); HEMATOCRIT 36.8 % (32.4-45.2); HEMOGLOBIN 12.4 GM/dL (10.7-15.3); LYMPH % 23.2 % (8-40); MCHC 33.6 g/dl (32.0-36.0); MEAN CELL VOLUME 95.3 fl (80-96); MEAN PLT VOLUME 9.4 fl (7.5-11.1); MONO % 12.7 % (3.8-10.2); NEUT % 58.5 % (42.8-82.8); PLATELET COUNT 236 10^3/uL (134-434); RBC 3.86 M/mm3 (3.60-5.2); RDW 17.1 % (11.6-15.6); WHITE BLOOD COUNT 3.7 K/mm3 (4.0-10.0)
[2023-07-11 17:05] LABS: POTASSIUM 3.3 mmol/L (3.5-5.1)
[2023-07-11 17:07] LABS: ALBUMIN 2.9 g/dl (3.4-5.0); BLOOD UREA NITROGEN 18.3 mg/dL (7-18); MAGNESIUM 1.9 mg/dL (1.8-2.4)
[2023-07-11 17:10] LABS: CREATININE 1.2 mg/dL (0.55-1.3)
[2023-07-11 17:11] LABS: BILIRUBIN,TOTAL 1.2 mg/dL (0.2-1)
[2023-07-11 17:12] LABS: TOT PROT 5.8 g/dl (6.4-8.2)
[2023-07-11] MEDS ORDERED: POTASSIUM CHLORIDE ORAL LIQUID 20 MEQ/15 ML ONE (20:22)
[2023-07-11] MEDS: POTASSIUM CHLORIDE ORAL LIQUID 20 MEQ/15 ML PO ONE (20:40)
[2023-07-11 22:41] LABS: EPI CELLS >36 /uL (0-25.1); HYALINE CASTS 12 /uL (0-3.1); URINE APPEARANCE CLOUDY; URINE BACTERIA 1427 /uL (0-1359); URINE BILIRUBIN NEGATIVE (NEGATIVE); URINE COLOR YELLOW; URINE GLUCOSE (UA) NEGATIVE (NEGATIVE); URINE KETONE 1+ (NEGATIVE); URINE LEUK ESTERASE 1+ (NEGATIVE); URINE NITRITE NEGATIVE (NEGATIVE); URINE PROTEIN 1+ (NEGATIVE); URINE RBC 24 /uL (0-23.9); URINE UROBILINOGEN 0.2 mg/dL (0.2-1.0); URINE WBC 212 /uL (0-25.8)
[2023-07-11 23:23] VITALS: RESP 20; BMI 24.5
[2023-07-12] MEDS: ONDANSETRON 4 MG/2 ML VIAL IVPUSH PRN (00:10)
[2023-07-12 05:09] VITALS: TEMP 98.1
[2023-07-12] MEDS: PANTOPRAZOLE 20 MG TABLET PO SCH (06:33)
[2023-07-12 06:52] LABS: HEMATOCRIT 30.5 % (32.4-45.2); HEMOGLOBIN 10.2 GM/dL (10.7-15.3); MCHC 33.5 g/dl (32.0-36.0); MEAN CELL VOLUME 95.6 fl (80-96); MEAN PLT VOLUME 9.5 fl (7.5-11.1); PLATELET COUNT 196 10^3/uL (134-434); RBC 3.19 M/mm3 (3.60-5.2); RDW 16.8 % (11.6-15.6); WHITE BLOOD COUNT 2.8 K/mm3 (4.0-10.0)
[2023-07-12 07:11] LABS: POTASSIUM 3.1 mmol/L (3.5-5.1)
[2023-07-12 07:18] LABS: CALCIUM 8.4 mg/dL (8.5-10.1)
[2023-07-12 07:19] LABS: BLOOD UREA NITROGEN 18.6 mg/dL (7-18)
[2023-07-12 07:22] LABS: CREATININE 0.8 mg/dL (0.55-1.3)
[2023-07-12] MEDS: amLODIPine BESYLATE 5 MG TABLET (FP) PO SCH (10:01)
[2023-07-12] MEDS: LISINOPRIL 5 MG TABLET PO SCH (10:01)
[2023-07-12 11:22] LABS: ANISOCYTOSIS 1+; MACROCYTOSIS 0
[2023-07-12 12:28] VITALS: BP 117/61; PULSE 75
[2023-07-12] MEDS: POTASSIUM CHLORIDE ORAL LIQUID 20 MEQ/15 ML PO ONE (12:42)
[2023-07-12] MEDS ORDERED: RIVAROXABAN 20 MG TABLET PO SCH (18:00)
[2023-07-12] MEDS ORDERED: ATORVASTATIN CA 40 MG TABLET (FP) PO SCH (22:00)
== END 2023-07-12 17:29 | disposition home or self-care (01) ==
LOC: JER 13:36 → INTOOBSV 18:36 → JERBED 18:36 → UNDOADMOB 18:36 → J4W 22:47 → JERBED 22:47 → J4W 07-12 12:23 → JERBED 07-12 12:23
PROVIDERS: ADMIT Internal Medicine; ATTEND Internal Medicine
PROC: 3E033NZ Introduction of Analgesics, Hypnotics, Sedatives into Peripheral Vein, Percutaneous Approach (ICD-10-PCS; principal; 2023-07-12)
PROC: 3E033GC Introduction of Other Therapeutic Substance into Peripheral Vein, Percutaneous Approach (ICD-10-PCS; 2023-07-12)
PROC: 3E0337Z Introduction of Electrolytic and Water Balance Substance into Peripheral Vein, Percutaneous Approach (ICD-10-PCS; 2023-07-12)
DX: R11.2 Nausea with vomiting, unspecified (principal); K21.9 Gastro-esophageal reflux disease without esophagitis; C90.00 Multiple myeloma not having achieved remission; E87.6 Hypokalemia; R53.1 Weakness; I10 Essential (primary) hypertension; R79.89 Other specified abnormal findings of blood chemistry; E78.5 Hyperlipidemia, unspecified; I48.91 Unspecified atrial fibrillation; M19.90 Unspecified osteoarthritis, unspecified site; D64.9 Anemia, unspecified; Z79.899 Other long term (current) drug therapy; Z90.49 Acquired absence of other specified parts of digestive tract
CPT/HCPCS: 0241U-QW; 36415; 71045-TC-FY; 80048; 80053; 80061; 81003; 82550; 83605; 83735; 84443; 84484; 85025; 93005; 93010; 93306-TC; 96365; 96375; 99285-25; G0378; J0131

== ENCOUNTER 2024-04-10 15:13 | Observation (INO) | payer BC ==
[2024-04-10 15:21] VITALS: BMI 24.0
[2024-04-10 17:39] LABS: BASO % 1.2 % (0-2.0); EOS % 2.9 % (0-4.5); HEMATOCRIT 19.9 % (32.4-45.2); LYMPH % 19.6 % (8-40); MCHC 31.5 g/dl (32.0-36.0); MEAN CELL VOLUME 110.9 fl (80-96); MONO % 10.6 % (3.8-10.2); NEUT % 65.7 % (42.8-82.8); PLATELET COUNT 236 10^3/uL (134-434); RDW 19.2 % (11.6-15.6); WHITE BLOOD COUNT 4.2 K/mm3 (4.0-10.0)
[2024-04-10 17:46] LABS: HEMOGLOBIN 6.3 GM/dL (10.7-15.3)
[2024-04-10 17:48] LABS: INR 2.25 (0.83-1.09); PROTHROMBIN TIME (PATIENT) 25.3 SEC (9.7-13.0)
[2024-04-10 17:51] LABS: ACTIVATED PTT 30.5 SECONDS (25.2-36.5)
[2024-04-10 18:05] LABS: PHOSPHOROUS 2.8 mg/dL (2.5-4.9)
[2024-04-10 18:46] LABS: POTASSIUM 5.5 mmol/L (3.5-5.1)
[2024-04-10 18:48] LABS: CALCIUM 8.1 mg/dL (8.5-10.1)
[2024-04-10 18:49] LABS: ALBUMIN 3.1 g/dl (3.4-5.0); BLOOD UREA NITROGEN 18.2 mg/dL (7-18)
[2024-04-10 18:51] LABS: URIC ACID 5.3 mg/dL (2.6-7.2)
[2024-04-10 18:53] LABS: BILIRUBIN,TOTAL 0.8 mg/dL (0.2-1); TOT PROT 5.4 g/dl (6.4-8.2)
[2024-04-10 19:36] LABS: ANISOCYTOSIS 1+; MACROCYTOSIS 1+; OVALOCYTE 1+
[2024-04-11 05:58] VITALS: RESP 18
[2024-04-11] MEDS: SODIUM ZIRCONIUM CYCLOSILICATE (LOKELMA) 5 GM PACKET PO ONE (06:17)
[2024-04-11] MEDS: LACTATED RINGERS SOLUTION 1,000 ML/1,000 ML INFUS.BAG IV SCH (06:17)
[2024-04-11 09:50] LABS: RETICULOCYTES 9.75 % (0.5-1.5)
[2024-04-11] MEDS: LISINOPRIL 5 MG TABLET PO SCH (09:59)
[2024-04-11] MEDS: PANTOPRAZOLE 40 MG TABLET PO SCH (09:59)
[2024-04-11] MEDS: amLODIPine BESYLATE 5 MG TABLET (FP) PO SCH (09:59)
[2024-04-11 19:54] VITALS: BP 128/62; PULSE 74; TEMP 98.3
[2024-04-11] MEDS ORDERED: ATORVASTATIN CA 40 MG TABLET (FP) PO SCH (22:00)
== END 2024-04-11 20:41 | disposition left against medical advice (07) ==
LOC: JER 15:13 → JERBED 22:27 → J6S 04-11 01:12
PROVIDERS: ADMIT Internal Medicine; ATTEND Internal Medicine
PROC: 30233N1 Transfusion of Nonautologous Red Blood Cells into Peripheral Vein, Percutaneous Approach (ICD-10-PCS; principal; 2024-04-10)
PROC: 3E0337Z Introduction of Electrolytic and Water Balance Substance into Peripheral Vein, Percutaneous Approach (ICD-10-PCS; 2024-04-10)
DX: D58.9 Hereditary hemolytic anemia, unspecified (principal); C90.00 Multiple myeloma not having achieved remission; I48.91 Unspecified atrial fibrillation; I10 Essential (primary) hypertension; E78.5 Hyperlipidemia, unspecified; K21.9 Gastro-esophageal reflux disease without esophagitis; B60.00 Babesiosis, unspecified; M19.90 Unspecified osteoarthritis, unspecified site; Z79.01 Long term (current) use of anticoagulants
CPT/HCPCS: 36415; 36430; 71046-TC-FY; 80053; 82272; 82728; 82746; 83540; 83550; 83880; 84100; 84484; 84550; 85025; 85045; 85610; 85730; 86850; 86870; 86880; 86900; 86901; 86902; 86922; 93005; 93010; 96360; 99285-25; G0378; P9058